=== PATIENT | female | born 1945 | race Caucasian/White ===

== ENCOUNTER 2023-07-25 07:29 | Observation (INO) ==
--- NOTE | 2023-07-06 15:30 | PAT Medication Instructions ---
Medication Instructions Date of Service July 06, 2023 Home Medications acetaminophen 325 mg tablet (Tylenol) 325 mg PO QID PRN chlorthalidone 25 mg tablet 25 mg PO QAM ibuprofen 200 mg tablet (Advil) 200 mg PO Q6H PRN lisinopril 20 mg tablet 20 mg PO BID rosuvastatin 10 mg tablet 10 mg PO HS ASK your surgeon for instructions ibuprofen 200 mg tablet (Advil) 200 mg PO Q6H PRN DO NOT take the morning of surgery chlorthalidone 25 mg tablet 25 mg PO QAM lisinopril 20 mg tablet 20 mg PO BID Take morning of surgery With a small sip of water, OTHERWISE NOTHING TO EAT OR DRINK AFTER MIDNIGHT: acetaminophen 325 mg tablet (Tylenol) 325 mg PO QID PRN(if needed) Take evening before surgery acetaminophen 325 mg tablet (Tylenol) 325 mg PO QID PRN(if needed) lisinopril 20 mg tablet 20 mg PO BID rosuvastatin 10 mg tablet 10 mg PO HS Other Notes If you have any questions please call us at [phone] or [phone] or [phone] or [phone]
--- NOTE | 2023-07-13 10:47 | Anesthesiology Consultation ---
Date of Service July 13, 2023 Assessment & Plan (1) Encounter for pre-operative examination: - PAT testing to be faxed to Dr. Grewal PCP, pending final clearance as below. - medical clearance 07/09/23: "...Stage IV MALT lymphoma, HTN...left total knee on 07/25/23...will be having her pretesting on 07/13/23...will ask that they all be forwarded to us. Barring any major abnormalities on her testing, she is appropriate for the procedure..." - Outpatient joint assessment: Patient is currently scheduled for inpatient pathway. If re-evaluated and patient/surgeon requests outpatient pathway, patient is not recommended candidate for outpatient joint program from anesthesia standpoint. Chart Review Chart Review: Pending: Refer to Additional Notes / Consult section and Patient seen in Pre Admission Testing Teaching & Discussion Pre-Anesthesia Teaching/Discussion Notes: Instructed NPO after midnight before surgery, except medications with 15 cc of water. Medication instructions provided according to the PAT guidelines. History Surgery Operation Date: 07/25/23 10:00 Proposed Procedures p Left Total Knee Arthroplasty - Nash Mai MD Height/Weight Height: 5 ft 1 in Weight: 81.1 kg Allergies Allergy/AdvReac Type Severity Reaction Status Date / Time No Known Allergies Allergy Verified 07/02/23 08:30 Medications Home Medications Medication Instructions Recorded Confirmed Last Taken acetaminophen 325 mg tablet 325 mg PO QID PRN Pain 07/02/23 07/02/23 Unknown (Tylenol) chlorthalidone 25 mg tablet 25 mg PO QAM 07/02/23 07/02/23 Unknown ibuprofen 200 mg tablet (Advil) 200 mg PO Q6H PRN Pain 07/02/23 07/02/23 Unknown lisinopril 20 mg tablet 20 mg PO BID 07/02/23 07/02/23 Unknown rosuvastatin 10 mg tablet 10 mg PO HS 07/02/23 07/02/23 Unknown allopurinol 100 mg tablet 100 mg PO QAM 07/13/23 07/13/23 Unknown Additional Notes: Pt states is also taking allopurinol 100 mg in the morning. This was written on provided medication instructions to take morning of surgery. She verbalized understanding and agreement, denied questions, concerns or additional medications. Past Medical History Medical History (Updated 07/13/23 @ 11:11 by Irasema Spivey PA-C) Acid reflux controlled, stable per pt CKD (chronic kidney disease) stage 2, GFR 60-89 ml/min History of cancer of stomach dx 2019 > was receiving treatment, completed History of parotid cancer 2019 > treatment completed Hyperlipidemia Hypertension controlled, stable per pt Lymphoma dx 2019 > has been cleared, no longer treatment Peripheral vascular disease Patient denies h/o stroke, seizures, heart attack, heart failure, DM, blood clots/DVTs or blood transfusions. Exercise / Class Metabolic Activity II 4-5 Yardwork/Stairs/Walk up hill (denies chest discomfort or shortness of breath with 1 FOS) Past Surgical History Surgical History History of bilateral tubal ligation History of cataract surgery bilat History of colonoscopy History of esophagogastroduodenoscopy (EGD) History of tooth extraction Past Anesthesia History No Hx of Anesthesia Complications and No Family Hx of Anesthesia Complications History of PONV No Hx of PONV and No Hx of Motion Sickness Social History Smoking Status: Never smoker Do You Dip or Chew Tobacco: No Hx Alcohol Use: No Hx Substance Use: No substance use type: does not use Review of Systems Patient denies chest pain, shortness of breath, dyspnea on exertion, snoring, witnessed apneas, fever, chills, cough, wheezing, or palpitations. Physical Exam Vital Signs Vitals BP 122/79 P 83 TEMP 98.1 SP02 99% on RA RESP 17 Physical Patient resting comfortably in chair in no acute distress, alert and oriented, responding appropriately throughout visit Full cervical extension range of motion without pain TMD 3.5 finger breadths Mallampati Score 2 Dentition: intact, denies chipped or loose teeth, caps/crowns, implants or bridges Lungs: normal respiratory effort. Good air movement, clear throughout to auscultation, no adventitious breath sounds Cardiac: regular rate and rhythm, no murmurs noted Carotid arteries: negative bruit bilat Lab Results Anesthesia Preop Results Results Anesthesia Widget: PT 10.3 Seconds (9.0-12.0) 07/13/23 PTT 25.6 Seconds (21.0-31.0) 07/13/23 INR 0.9 (0.9-1.1) 07/13/23 HA1c 5.7 % (4.5-5.6) H 07/13/23 Urine Color Yellow 07/13/23 Urine Appearance Cloudy (Clear) A 07/13/23 Urine pH 5.5 (4.5-7.5) 07/13/23 Urine Specific [place] 1.013 (1.000-1.030) 07/13/23 Urine Protein Negative (Negative) 07/13/23 Urine Glucose (UA) Negative (Negative) 07/13/23 Urine Ketones Negative (Negative) 07/13/23 Urine Blood Trace (Negative) H 07/13/23 Urine Nitrite Negative (Negative) 07/13/23 Urine Bilirubin Negative (Negative) 07/13/23 Urine Urobilinogen Negative (Negative) 07/13/23 Urine Leukocyte Esterase 1+ (Negative) H 07/13/23 Urine WBC (Auto) 5-10 /hpf (0-5) H 07/13/23 Urine RBC (Auto) 0-4 /hpf (0-4) 07/13/23 Urine Hyaline Casts (Auto) 1-5 /lpf (0-5) 07/13/23 Urine Epithelial Cells (Auto) >30 /lpf (0-5) H 07/13/23 Urine Bacteria (Auto) Negative (Negative) 07/13/23 Blood Type O Positive 07/13/23 Antibody Screen NEGATIVE 07/13/23 Testing Laboratory Results 06/28/2023 WBC: 4.9 H/H: 12 PLATELETS: 205 SODIUM: 140 POTASSIUM: 4.2 CHLORIDE: 104 CO2: 26 BUN: 22 CREATININE: 0.8 GLUCOSE: 102 Electrocardiogram Date: 07/13/23 NSR, rate 88 bpm Diffuse minor nonspecific ST abnormality Chest X-Ray Date: 07/13/23 No acute process
--- NOTE | 2023-07-23 19:24 | History & Physical Report ---
Date of Service July 23, 2023 Assessment & Plan (1) Primary osteoarthritis of left knee: Plan: Treatment options discussed with the patient. She has failed conservative measures and would like to proceed with surgical intervention. Risks, benefits and alternatives to surgery including but not limited to infection, DVT, pain, stiffness, need for revision surgery, damage to blood vessels, damage to nerves, PE, , were discussed with the patient and they wish to proceed. Plan on left total knee arthroplasty scheduled for 07/25/23 at [facility] with Dr. Mai. Plan on outpatient physical therapy. Plan on aspirin 81 mg twice daily for 1 mo post op for DVT prophylaxis. All questions answered. Patient will follow up post op. History of Present Illness Chief Complaint: Left knee pain Primary Care Provider: Holger Grewal MD 78yo female with PMHx significant for CKD, HTN, lymphoma, PVD who presents with ongoing left knee pain. Pain is interfering with her daily activity. She has failed conservative measures and would like to proceed with surgical intervention. Patient denies headaches, sweats, fevers, chills, double vision, blurred vision, cough, sore throat, dysphagia, chest pain, sob, wheezing, n/v/d/c, numbness, tingling, fatigue, urinary symptoms, mood disorders. ROS positive for left knee pain and stiffness. Allergies Allergy/AdvReac Type Severity Reaction Status Date / Time No Known Allergies Allergy Verified 07/02/23 08:30 Home Medications Medication Instructions Recorded Confirmed Type acetaminophen 325 mg tablet 325 mg PO QID PRN Pain 07/02/23 07/02/23 History (Tylenol) chlorthalidone 25 mg tablet 25 mg PO QAM 07/02/23 07/02/23 History ibuprofen 200 mg tablet (Advil) 200 mg PO Q6H PRN Pain 07/02/23 07/02/23 History lisinopril 20 mg tablet 20 mg PO BID 07/02/23 07/02/23 History rosuvastatin 10 mg tablet 10 mg PO HS 07/02/23 07/02/23 History allopurinol 100 mg tablet 100 mg PO QAM 07/13/23 07/13/23 History Past Med/Surg History Medical History (Updated 07/23/23 @ 19:22 by Kieran Crowder PA-C) Acid reflux controlled, stable per pt CKD (chronic kidney disease) stage 2, GFR 60-89 ml/min History of cancer of stomach dx 2019 > was receiving treatment, completed History of parotid cancer 2019 > treatment completed Hyperlipidemia Hypertension controlled, stable per pt Lymphoma dx 2019 > has been cleared, no longer treatment Peripheral vascular disease Surgical History History of bilateral tubal ligation History of cataract surgery bilat History of colonoscopy History of esophagogastroduodenoscopy (EGD) History of tooth extraction Social History Smoking Status: Never smoker Second Hand Exposure: No; Do You Dip or Chew Tobacco: No; Hx Alcohol Use: No Hx Substance Use: No Preferred Language: Grenadian Communication Ability: Effective Wall Covering Installer Required: No Beliefs That Will Affect Care: None Current Living Situation: Alone Feels Safe at Home: Yes Assistive Devices: Glasses Review of Systems All systems reviewed & are unremarkable except as noted in HPI & below Physical Exam Constitutional: well developed and well nourished; no acute distress Eyes: PERRL, conjunctivae normal, anicteric sclerae ENMT: external ear and nose normal, oropharynx normal Neck: trachea midline, no thyromegaly Respiratory: normal respiratory effort, lungs clear to auscultation Cardiovascular: RRR, no murmur, no edema Musculoskeletal: Left knee: Varus alignment. medial joint line tenderness. Mild swelling. Moderate crepitation. Positive Savage's. Negative valgus stress, negative varus. ROM -5-90 degrees. Skin: no rashes, warm and dry Neurologic: patellar DTR's 2+ bilat, sensation intact Psychiatric: A+Ox3, euthymic affect Results & Data Diagnostic Findings Left knee radiographs demonstrate tricompartmental arthritic changes. Bone on bone medial compartment with advanced patellofemoral compartment arthritis. There is periarticular osteophytes.
[~2023-07-25 07:29] MED LIST: ACETAMINOPHEN 500 MG TAB PO SCH; BUPIVACAINE 0.25% PF 30 ML VIAL ONE; BUPIVACAINE 0.5 % 5 MG/1 ML PF 10ML VIAL ONE; CeleBREX 200 MG CAP PO SCH; FAMOTIDINE 20 MG TAB PO SCH; GABAPENTIN 300 MG CAP PO SCH; LR 500ML BOLUS, THEN 15ML/HR IV SCH; LR 60ML/HR IV SCH; METOCLOPRAMIDE HCL 10 MG TABLET PO SCH; ROPIVACAINE 0.5% HCL/PF 150 MG, BUPIVACAINE 0.75% MPF 20 ML, EPINEPHrine 30MG/30ML (OR ... INSTIL SCH; TRANEXAMIC ACID 1,000 MG **IV Intra-op IV SCH; TRANEXAMIC ACID 1,000 MG **IV Pre-op IV SCH; ceFAZolin 2000MG 2,000 MG/15 ML SYR IV SCH; dexAMETHasone 4 MG TAB PO SCH
[2023-07-25] MEDS ORDERED: ATROPINE SULFATE 0.1 MG/ML 10ML SYR IV PRN (09:02)
[2023-07-25] MEDS ORDERED: ePHEDrine sulfate 50 MG/ML AMP IV PRN (09:02)
[2023-07-25] MEDS ORDERED: fentaNYL citrate PF 100 MCG/2 ML VIAL IV PRN (09:02)
[2023-07-25] MEDS ORDERED: ONDANSETRON INJ 2 MG/ML 2 ML VIAL IV PRN ×2 (09:02→15:13)
[2023-07-25] MEDS ORDERED: LIDOCAINE 2% 2 ML VIAL/AMP(20MG/ML) INFIL ONE (09:43)
[2023-07-25] MEDS ORDERED: PROPOFOL IV EMULSION 10 MG/ML 20 ML VIAL IV ONE (09:43)
[2023-07-25] MEDS ORDERED: MIDAZOLAM HCL 1 MG/ML 2ML VIAL ONE (09:43)
[2023-07-25] MEDS ORDERED: ORTHO JOINT ANESTHETIC ONE (10:55)
--- NOTE | 2023-07-25 10:57 | History & Physical Bridge Note ---
Date of Service July 25, 2023 History & Physical Bridge Note I have examined the patient, reviewed the History & Physical and in the interval since the performance of the History & Physical I have noted the following changes of clinical significance: no changes noted
[2023-07-25] MEDS ORDERED: KETAMINE 50 MG/5 ML SYRINGE ONE (12:52)
--- NOTE | 2023-07-25 13:59 | Post Operative Brief Note ---
Immediate Post Op Note v1 Date of Surgery July 25, 2023 Pre & Post Diagnosis Operation Date: 07/25/23 09:45 Pre-Op Diagnosis: Primary osteoarthritis of left knee Post-Op Diagnosis: Primary osteoarthritis of left knee I identified the patient and participated in the time-out.: Yes Procedure Operation Date: 07/25/23 09:45 Actual Procedures p Left Total Knee Arthroplasty(Left) , Luisa Acticoat superficial wound VAC- Nash Mai MD Surgeon Nash Mai MD Cryptographic Vulnerability Analyst Kieran READ Estimated Blood Loss 10 Findings Consistent with Post-Op Diagnosis Specimens bone cuts Drains Hemovac Drain (10 fr. dual trocar) Anesthesia Type MAC Spinal Regional Complications none Disposition Accompanied Patient To Recovery: No Disposition: Recovery Room Overlapping Procedure I was immediately available: during the entire case.
--- NOTE | 2023-07-25 14:13 | Operative Report ---
Post Operative Report Pre & Post Diagnosis Operation Date: 07/25/23 09:45 Pre-Op Diagnosis: Primary osteoarthritis of left knee Post-Op Diagnosis: Primary osteoarthritis of left knee I identified the patient and participated in the time-out.: Yes Procedure Operation Date: 07/25/23 09:45 Actual Procedures p Left Total Knee Arthroplasty(Left), application brisa and Acticoat superficial wound VAC - Nash Mai MD Surgeon Nash Mai MD Pipe Smoking Machine Operator Kieran READ Estimated Blood Loss 10 Findings Consistent with Post-Op Diagnosis Specimens bone cuts Drains 2 Hemovac Anesthesia Type MAC Spinal Regional Complications none Disposition Disposition: Recovery Room Indications 78-year-old female with severe tricompartmental osteoarthritis of left knee with limited range of motion. Patient also has obesity of the leg. Description of Procedure The patient was taken to the operating room and anesthetized under Spinal MAC regional block anesthesia. Patient was placed supine on the the operating table. A pneumatic tourniquet was placed about the Obese left upper thigh. The knee exam demonstrated an obese thigh and knee with range of motion 0 through 70 degrees only. Very stiff knee with no instability with varus valgus stress The involved leg was elevated exsanguinated with Esmarch bandage and the pneumatic tourniquet was raised to 350 millimeters mercury. A longitudinal incision was made across the anterior knee. Skin flaps were elevated. An incision was made into the medial retinaculum and extended up into the mid third of the quadriceps tendon and extended down to the tibial tubercle. Intra- articular findings demonstrated severe tricompartmental osteoarthritis with a very large loose body superior to the patella large patellar osteophytes [id number] both medial and lateral compartments with some bone loss medially with a varus knee and chronic ACL tear and notch stenosis with bone coursing across the notch. The knee was exposed by excising The posterior cruciate ligament and menisci. there were calcifications in the soft tissues with history of being on allopurinol and probable gout. The large loose body was resected. The infrapatellar fat pad was resected. The fat pad over the anterior femur at the upper aspect of the articular surface was resected for placement of the component in that area. A subperiosteal peel lateral release was performed around the patella. The Darling & Nephew journey 2.0 posterior stabilized total knee arthroplasty system was utilized for the procedure. The custom femoral cutting guide was pinned in position. The distal femoral cut was made. The size 4, 5 in 1 cutting block was placed. The anterior posterior and chamfer cuts were made. The knee was extended and a free hand cut technique was performed to the patella. The patella width was measured and the width was reproduced using a 32 symmetrical patella component. 3 drill holes are made for the patella component pegs. excess lateral facet was beveled off to prevent any impingement The tibia was then subluxed. The custom tibial cutting block was pinned in position and the proximal tibial cut was made with the oscillating saw. Flexion and extension gaps were balanced. this required a medial posterior medial release and minor pie crusting in the anterior MCL. The size 4 tibial trial was externally rotated in line with the tibial tubercle and pinned in position. The punch for the stem was used. The femoral trial was inserted and centered the notch cutting devices were used and the collet was placed. Tibial trials were used for the insert. The size 15 trial gave balanced ligaments through full range of motion. Patella tracking was assessed with range of motion. The patella tracked centrally. The trials were removed. The Orthomix anesthetic cocktail was injected per protocol. The cut bone surfaces and soft tissue were copiously irrigated with pulsatile lavage saline solution. The final components were cemented with Refobacin cement. The final components were Darling & Nephew journey 2.0 size 4 left femoral component, size 4 left tibial component, 15 posterior stabilized tibial polyethylene and a 32 mm symmetrical patella polyethylene After the cement cured ,the Betadine soak was used for 3 minutes. The knee was then copiously irrigated with pulsatile lavage saline solution. 2 drains were brought out laterally connected to Hemovac. The quadriceps tendon and medial retinaculum were closed with interrupted [id number] #1 Vicryl sutures. at the area of the patella tendon attachment the tendon started to pull away from the bone slightly so we reinforced the repair that area with a Darling & Nephew 2.8 mm Q fix suture anchor with ultra braid sutures. The knee was taken through range of motion and repair was secure. Knee range of motion was 0 through 90 degrees. the thick subcutaneous tissues were closed with 2-0 Vicryl sutures. The skin was closed with juan pablo. A Brisa and Acticoat superficial wound VAC was applied. The tourniquet was let down and the patient had good capillary refill to the extremity. The patient tolerated the procedure well. My physician legal support assistant Kieran READ participated as first assistant manager and was integral part in all aspects of the procedure including prepping, draping, leg positioning, soft tissue retraction, instrument management and assisted in the closure, wound VAC application and will participate in postoperative care the patient. I attest to the content of the Intraoperative Record and any orders documented therein. Any exceptions are noted below.
--- NOTE | 2023-07-25 14:50 | XRay Report ---
TWO VIEWS LEFT KNEE CLINICAL HISTORY: Postoperative examination. FINDINGS: AP and crosstable lateral portable views of the left knee are obtained. A left knee arthrop lasty is in near anatomic alignment. There has been undersurface remodeling of the patella. No acute fracture is seen. There are expected postoperative changes around the knee including skin clips, a rivas rgical drain, soft tissue edema, and subcutaneous gas. IMPRESSION: Expected postoperative changes status post left knee arthroplasty. No acute fracture is s een. ACT 112: Negative or not required by law. Electronically signed by: Broderick Frye M.D. 07/25/2023 2:49 PM
[2023-07-25] MEDS ORDERED: NALOXONE HCL 0.4 MG/1 ML VIAL/CARP IV PRN (15:13)
[2023-07-25] MEDS ORDERED: METOCLOPRAMIDE HCL INJ 5 MG/ML 2 ML VIAL IV PRN (15:13)
[2023-07-25] MEDS ORDERED: HYDROmorphone INJ 0.5 MG/0.5 ML SYR IV PRN (15:13)
[2023-07-25] MEDS ORDERED: bisacodyL 10 MG SUPP PR PRN (15:13)
[2023-07-25] MEDS ORDERED: MAGNESIUM HYDROXIDE SUSP 30 ML UDC PO PRN (15:13)
--- NOTE | 2023-07-25 15:27 | Anesthesiology Progress Note ---
Date of Service July 25, 2023 Anesthesia Post Procedure Vital Signs Vital Signs: Temp Pulse Pulse Resp BP Pulse Ox O2 Del Method 07/25/23 15:16 36.9 C 77 18 121/71 96 Room Air 07/25/23 15:00 81 13 111/68 98 Room Air 07/25/23 14:50 80 20 106/63 94 Room Air 07/25/23 14:40 76 18 102/61 96 Room Air 07/25/23 13:40 76 18 102/61 96 Room Air 07/25/23 14:30 36.7 C 76 20 103/62 97 Nasal Cannula 07/25/23 14:20 75 16 100/59 L 98 Nasal Cannula 07/25/23 14:10 79 18 99/74 L 98 Nasal Cannula 07/25/23 14:04 36.7 C 79 17 90/64 L 95 Nasal Cannula 07/25/23 08:03 36.7 C 85 20 145/91 H 99 Room Air O2 Flow Rate 07/25/23 15:16 07/25/23 15:00 07/25/23 14:50 07/25/23 14:40 07/25/23 13:40 07/25/23 14:30 2 07/25/23 14:20 2 07/25/23 14:10 2 07/25/23 14:04 2 07/25/23 08:03 Pain Intensity Bilateral Knee: Pain Intensity: 5 Transfer of Care Handoff Completed per policy Notes Mental Status: alert / awake / arousable and participated in evaluation Patient Amnestic to Procedure: Yes Nausea / Vomiting: adequately controlled Pain: adequately controlled Airway Patency, RR, SpO2: stable & adequate BP & HR: stable & adequate Hydration State: stable & adequate Neuraxial Anesthesia: was administered and sensory block is resolving Anesthetic Complications: no major complications apparent and Pt Satisfied with anesthetic care
[2023-07-25] MEDS: SODIUM CHLORIDE 0.9% 1,000 ML IV SCH (15:49)
[2023-07-25] MEDS: ASPIRIN 81 MG ECTAB PO SCH (20:09)
[2023-07-25] MEDS: DOCUSATE SODIUM 100 MG CAP PO SCH (20:09)
[2023-07-25] MEDS: SENNA 8.6 MG TAB PO SCH (20:10)
[2023-07-25] MEDS: ROSUVASTATIN CALCIUM 10 MG TAB PO SCH (20:10)
[2023-07-25] MEDS: CeleBREX 200 MG CAP PO SCH (20:10)
[2023-07-25] MEDS: ceFAZolin 2000MG 2,000 MG/15 ML SYR IV SCH (20:16)
[2023-07-25] MEDS: ACETAMINOPHEN 500 MG TAB PO SCH (22:01)
[2023-07-26] MEDS ORDERED: Nursing to Pharmacy Communication SCH (02:30)
[2023-07-26] MEDS: SODIUM CHLORIDE 0.9% 1,000 ML IV SCH (03:03)
[2023-07-26] MEDS: ceFAZolin 2000MG 2,000 MG/15 ML SYR IV SCH (04:50)
[2023-07-26] MEDS: ACETAMINOPHEN 500 MG TAB PO SCH ×3 (06:02→22:01)
[2023-07-26 06:36] LABS: Hematocrit (blood only) 30.9 % (37.0-47.0); Hemoglobin 10.3 g/dl (12.0-16.0); Mean Corpuscular Hemoglobin 28.9 pg (25.0-34.0); Mean Corpuscular Hgb Conc 33.3 g/dL (32.0-36.0); Mean Corpuscular Volume 86.6 fL (80.0-100.0); Mean Platelet Volume 10.2 fL (9.4-12.4); Platelet Count 190 K/uL (130-400); RDW Coefficient of Variation 13.9 % (11.5-14.5); Red Blood Count 3.57 M/uL (4.20-5.40)
[2023-07-26 06:50] LABS: BUN Creatinine Ratio 24.4 (10-20); Creatinine Clr Calc Pharmacy 59.6 ml/min; Est GFR (African American) 85.6 ml/min; Est GFR (Non-African American) 73.8 ml/min; Potassium 3.8 mmol/L (3.5-5.1)
--- NOTE | 2023-07-26 07:44 | Orthopedic Progress Note ---
Date of Service July 26, 2023 Assessment & Plan (1) Primary osteoarthritis of left knee: Plan: Postop day #1 left total knee arthroplasty -PT/OT -Pain management as written -AM labs: Leukocytosis likely reactive due to surgical stress versus perioperative steroids. Hemoglobin 10.6 acute blood loss anemia due to surgical dilution. Patient is asymptomatic. Hemovac output 250 cc last shift -DVT prophylaxis: SCDs, teds, aspirin 81 mg -Discharge planning: Plan on discharge home when stable. High Hemovac past shift. We will monitor throughout the day and plan on discharge likely tomorrow. Admission and Anticipated Discharge Date Admission Date: July 25, 2023 Subjective Patient is postop day 1 left total knee. She is doing well this morning. Block is still in effect, minimal pain. Some tingling into her foot. Otherwise no other complaints. Denies chest pain, shortness of breath, nausea/vomiting/diarrhea, headaches or dizziness. Review of Systems Review of Systems: All systems reviewed & are unremarkable except as noted in Subjective Physical Exam Physical Exam: Left knee: Dressing is clean, dry, intact. No calf tenderness. Able to do a straight leg raise. Toes are mobile with good dorsiflexion. Distally neurovascular status and sensation is grossly intact. Some tingling in her foot likely residual from nerve block. Constitutional: WD/WN, vitals as above Results & Data Vital Signs (Past 12 Hours) Vital Signs Temp Pulse Resp BP Pulse Ox O2 Del Method 07/26/23 02:57 36.5 C 76 16 118/73 96 Room Air 07/25/23 20:00 Room Air 07/25/23 22:47 36.7 C 76 16 104/67 96 Room Air Laboratory Results Lab Results 07/26/23 07/26/23 Range/Units 05:41 05:41 WBC 12.80 H (4.8-10.8) K/ul RBC 3.57 L (4.20-5.40) M/uL Hgb 10.3 L (12.0-16.0) g/dl Hct 30.9 L (37.0-47.0) % MCV 86.6 (80.0-100.0) fL MCH 28.9 (25.0-34.0) pg MCHC 33.3 (32.0-36.0) g/dL RDW Std Deviation 44.0 (36.4-46.3) fL RDW Coeff of [place] 13.9 (11.5-14.5) % Plt Count 190 (130-400) K/uL MPV 10.2 (9.4-12.4) fL Sodium 139 (136-145) mmol/L Potassium 3.8 (3.5-5.1) mmol/L Chloride 107 (98-107) mmol/L Carbon Dioxide 25 (21-32) mmol/L Anion Gap 7 (3-11) BUN 19 (6-23) mg/dl Creatinine 0.78 (0.6-1.2) mg/dl Est Cr Clr Drug Dosing 59.6 ml/min Est GFR ( Amer) 85.6 ml/min Est GFR (Non-Af Amer) 73.8 ml/min BUN/Creatinine Ratio 24.4 H (10-20) Glucose 133 H (70-99(Fasting)) mg/dl Calcium 8.0 L (8.6-10.3) mg/dl
--- NOTE | 2023-07-26 07:59 | Hospitalist Consultation ---
Date of Consultation July 26, 2023 Assessment & Plan (1) Primary osteoarthritis of left knee: POD# 1 s/p Left Total Knee Arthroplasty(Left), application brisa and Acticoat superficial wound VAC - Nash Mai MD. EBL 10cc Pain control/bowel regimen/PT/OT per primary service DVT proph: ASA 81mg BID WBC elevation, likely from steroids. Afebrile. Hgb 10.6, acute blood loss from surgery suspected as well as aspect of dilutional from IVF (no pre-op hgb for comparison however) Hemovac output 340cc overnight, additional 175cc already this morning and likely would benefit from continuing monitoring to ensure slowed before discharge. She is asymptomatic at this time without SOB/CP/lightheaded/dizziness but will monitor for any issues. (2) Hypertension: BP stable, renal function stable on AM labs Resumed future hold for her chlorthalidone/lisinopril, BP 124/78 this morning (3) Hyperlipidemia: continue statin HS (4) CKD (chronic kidney disease) stage 2, GFR 60-89 ml/min: renal function at baseline Cautious use of NSAIDs as needed for pain control (5) Lymphoma: hx MALT lymphoma, in remission Plan Thank you for allowing hospitalist service to participate in the care of Ms Easley. Monitor hemovac output/increased but likely would benefit monitoring overnight. Please call with any questions/concerns. Supervising Physician Co-Signing Physician Notes During face to face encounter, I obtained a history and physical examination, and answered any questions the patient had. I discussed the plan of care with CHACE Marie and irene. I reviewed above note and agree with it except for the following: Patient is consulted under medical service for medical management. Monitoring hemoglobin after L TKA. Resume home meds such as her thiazide and lisinopril. History of Present Illness Reason for Consultation: medical management Requesting Physician: Dr Mello Attending Physician: Nash Mai MD History of Present Illness 78yo female with PMHx significant for HTN, HLD, MALT lymphoma presented for LEFT TKA with Dr Mai on 07/25. EBL 10cc Patient evaluated in 306, getting ready to work with OT. Pain controlled, still having a little numbness but reports getting better than yesterday, some tingling to her toes. Hemovac emptied for >175cc in less than 2 hour period of time per patient, she is anticipating staying overnight. Eating/drinking without issue. No chest pain, shortness of breath, lightheadedness or dizziness reported. She notes everyone keeps asking her this. Discussed if she has any of these symptoms to notify nursing for repeat eval. She plans to continue outpatient therapy at discharge. Allergies Allergy/AdvReac Type Severity Reaction Status Date / Time No Known Allergies Allergy Verified 07/25/23 07:52 Home Medications Medication Instructions Recorded Confirmed Type chlorthalidone 25 mg tablet 25 mg PO QAM 07/02/23 07/25/23 History lisinopril 20 mg tablet 20 mg PO BID 07/02/23 07/25/23 History rosuvastatin 10 mg tablet (Crestor) 10 mg PO HS 07/02/23 07/25/23 History allopurinol 100 mg tablet 100 mg PO QAM 07/13/23 07/25/23 History acetaminophen 500 mg tablet 1,000 mg PO Q8 #60 tabs 07/27/23 Rx (Tylenol Extra Strength) aspirin 81 mg tablet,delayed 81 mg PO BID #60 tabs 07/27/23 Rx release celecoxib 200 mg capsule (Celebrex) 200 mg PO BID #60 caps 07/27/23 Rx ferrous sulfate 325 mg (65 mg 325 mg PO QAM #30 tabs 07/28/23 Rx iron) tablet,delayed release oxycodone 5 mg tablet 5 mg PO Q4H PRN pain #30 tabs 07/28/23 Rx polyethylene glycol 3350 17 gram 17 g PO DAILY PRN constipation #5 07/28/23 Rx oral powder packet (Miralax) ea Patient History Medical History Acid reflux controlled, stable per pt CKD (chronic kidney disease) stage 2, GFR 60-89 ml/min History of cancer of stomach dx 2019 > was receiving treatment, completed History of parotid cancer 2019 > treatment completed Hyperlipidemia Hypertension controlled, stable per pt Lymphoma dx 2019 > has been cleared, no longer treatment Peripheral vascular disease Surgical History History of bilateral tubal ligation History of cataract surgery bilat History of colonoscopy History of esophagogastroduodenoscopy (EGD) History of tooth extraction Social History Smoking Status: Never smoker Second Hand Exposure: No; Do You Dip or Chew Tobacco: No; Tobacco Cessation Education Requested by Patient: No Hx Alcohol Use: No Hx Substance Use: No Preferred Language: Serbian Communication Ability: Effective Knuckle Strap Sewer Required: No Beliefs That Will Affect Care: None Current Living Situation: Alone Other Information That Helps Us Care for You: No Feels Safe at Home: Yes Safety Concerns: Feels Safe At This Time Assistive Devices: Walker Review of Systems Review of Systems: All systems reviewed & are unremarkable except as noted in HPI & below Physical Exam Physical Exam: General: WN/WD female sitting up in bed, about to work with therapy, no acute distress HEENT: head normocephalic, atraumatic, mmm, trachea midline Resp: CTA, no w/c/r, on room air CV: RRR, no significant mrg, trace pedal edema, calves nontender, pulses palpable GI: +BS, soft/NT no obrien MSK/Neuro: dressing to LEFT knee c/d/i, TRINIDAD wrap/ice pack in place, hemovac with bloody drainage, slight decreased sensation to light touch but intact to pressure. toes mobile, cap refill wnl Psych: AOx3, cooperative Results & Data Results & Data Vital Signs (Past 12 Hours) Vital Signs Temp Pulse Resp BP Pulse Ox O2 Del Method 07/26/23 07:41 36.5 C 81 16 124/78 99 Room Air 07/26/23 02:57 36.5 C 76 16 118/73 96 Room Air 07/25/23 20:00 Room Air 07/25/23 22:47 36.7 C 76 16 104/67 96 Room Air Laboratory Results 07/26/23 07/26/23 Range/Units 05:41 05:41 WBC 12.80 H (4.8-10.8) K/ul RBC 3.57 L (4.20-5.40) M/uL Hgb 10.3 L (12.0-16.0) g/dl Hct 30.9 L (37.0-47.0) % MCV 86.6 (80.0-100.0) fL MCH 28.9 (25.0-34.0) pg MCHC 33.3 (32.0-36.0) g/dL RDW Std Deviation 44.0 (36.4-46.3) fL RDW Coeff of [place]ico 13.9 (11.5-14.5) % Plt Count 190 (130-400) K/uL MPV 10.2 (9.4-12.4) fL Sodium 139 (136-145) mmol/L Potassium 3.8 (3.5-5.1) mmol/L Chloride 107 (98-107) mmol/L Carbon Dioxide 25 (21-32) mmol/L Anion Gap 7 (3-11) BUN 19 (6-23) mg/dl Creatinine 0.78 (0.6-1.2) mg/dl Est Cr Clr Drug Dosing 59.6 ml/min Est GFR ( Amer) 85.6 ml/min Est GFR (Non-Af Amer) 73.8 ml/min BUN/Creatinine Ratio 24.4 H (10-20) Glucose 133 H (70-99(Fasting)) mg/dl Calcium 8.0 L (8.6-10.3) mg/dl Diagnostic Findings Knee X-Ray 07/25/23 14:04 TWO VIEWS LEFT KNEE CLINICAL HISTORY: Postoperative examination. FINDINGS: AP and crosstable lateral portable views of the left knee are obtained. A left knee arthroplasty is in near anatomic alignment. There has been undersurface remodeling of the patella. No acute fracture is seen. There are expected postoperative changes around the knee including skin clips, a surgical drain, soft tissue edema, and subcutaneous gas. IMPRESSION: Expected postoperative changes status post left knee arthroplasty. No acute fracture is seen. ACT 112: Negative or not required by law. Electronically signed by: Broderick Frye M.D. 07/25/2023 2:49 PM PG Care Time/CCT Total # of Minutes Spent Total Time Spent with Patient: Total time spent is greater than 50% in coordination of care (as documented) at patient's floor/unit and/or counseling patient: Coding Level of Care Code 01377 IN/OBS CONSULT LVL 3,45M Diagnoses Primary osteoarthritis of left knee M17.12 Hypertension I10 Hyperlipidemia E78.5 CKD (chronic kidney disease) stage 2, GFR 60-89 ml/min N18.2 Lymphoma C85.90
[2023-07-26] MEDS: CeleBREX 200 MG CAP PO SCH ×2 (08:41→20:32)
[2023-07-26] MEDS: DOCUSATE SODIUM 100 MG CAP PO SCH ×2 (08:41→20:33)
[2023-07-26] MEDS: lisinopril 20 MG TAB PO SCH ×2 (08:41→20:34)
[2023-07-26] MEDS: MULTIVITAMIN TAB PO SCH (08:42)
[2023-07-26] MEDS: ASPIRIN 81 MG ECTAB PO SCH ×2 (08:42→20:33)
[2023-07-26] MEDS: allopurinoL 100 MG TAB PO SCH (08:42)
[2023-07-26] MEDS ORDERED: CHLORTHALIDONE 25 MG TAB PO SCH (09:00)
[2023-07-26] MEDS: ROSUVASTATIN CALCIUM 10 MG TAB PO SCH (20:33)
[2023-07-26] MEDS: SENNA 8.6 MG TAB PO SCH (20:34)
[2023-07-27 06:16] LABS: Hematocrit (blood only) 26.7 % (37.0-47.0); Hemoglobin 8.8 g/dl (12.0-16.0); Mean Corpuscular Hemoglobin 29.2 pg (25.0-34.0); Mean Corpuscular Volume 88.7 fL (80.0-100.0); Mean Platelet Volume 9.8 fL (9.4-12.4); Platelet Count 164 K/uL (130-400); RDW Coefficient of Variation 14.3 % (11.5-14.5); RDW Standard Deviation 45.7 fL (36.4-46.3); Red Blood Count 3.01 M/uL (4.20-5.40); White Blood Count 6.53 K/ul (4.8-10.8)
[2023-07-27] MEDS: ACETAMINOPHEN 500 MG TAB PO SCH ×3 (06:21→21:54)
[2023-07-27] MEDS: oxyCODONE HCL IR 5 MG TAB (IMMEDIATE RELEASE) PO PRN (06:26)
[2023-07-27 06:33] LABS: BUN Creatinine Ratio 29.9 (10-20); Calcium 7.7 mg/dl (8.6-10.3); Creatinine Clr Calc Pharmacy 69.4 ml/min; Est GFR (Non-African American) 85.4 ml/min
--- NOTE | 2023-07-27 07:35 | Orthopedic Progress Note ---
Date of Service July 27, 2023 Assessment & Plan (1) Primary osteoarthritis of left knee: Plan: Postop day #2 left total knee arthroplasty -PT/OT -Pain management as written -AM labs: Leukocytosis likely reactive due to surgical stress versus perioperative steroids. Hemoglobin down to 8.8 from 10.6 acute blood loss anemia due to surgical dilution. Patient is asymptomatic. -DVT prophylaxis: SCDs, teds, aspirin 81 mg -Discharge planning: Plan on discharge home when stable. Patient is having increased pain today and is having trouble getting under control. We will add a dose of Toradol. She did have 10 mg of oxycodone this morning and is having some lightheadedness due to this. She states that she has had this reaction before and will improve. Discussed switching pain medication however she would like to keep it where it is right now. We will monitor her throughout the day today and likely discharge home tomorrow if pain better controlled. Admission and Anticipated Discharge Date Admission Date: July 25, 2023 Subjective Postop day 2 left total knee. Patient is having increased pain today as the nerve blocks were off. She is having trouble getting her pain under control. She is concerned about going home today as she is unsure of her self. Review of Systems Review of Systems: All systems reviewed & are unremarkable except as noted in Subjective Physical Exam Physical Exam: Left knee: Dressing is clean, dry, intact. No calf tenderness. Toes are mobile with good dorsiflexion. Distally neurovascular status and sensation is grossly intact. Results & Data Vital Signs (Past 12 Hours) Vital Signs Temp Pulse Resp BP Pulse Ox O2 Del Method 07/27/23 06:46 36.6 C 78 18 104/64 100 Room Air 07/26/23 20:30 Room Air 07/26/23 20:13 37 C 88 18 98/59 L 98 Room Air Laboratory Results Lab Results 07/26/23 07/26/23 07/27/23 Range/Units 05:41 05:41 05:51 WBC 12.80 H 6.53 (4.8-10.8) K/ul RBC 3.57 L 3.01 L (4.20-5.40) M/uL Hgb 10.3 L 8.8 L (12.0-16.0) g/dl Hct 30.9 L 26.7 L (37.0-47.0) % MCV 86.6 88.7 (80.0-100.0) fL MCH 28.9 29.2 (25.0-34.0) pg MCHC 33.3 33.0 (32.0-36.0) g/dL RDW Std Deviation 44.0 45.7 (36.4-46.3) fL RDW Coeff of [place] 13.9 14.3 (11.5-14.5) % Plt Count 190 164 (130-400) K/uL MPV 10.2 9.8 (9.4-12.4) fL Sodium 139 (136-145) mmol/L Potassium 3.8 (3.5-5.1) mmol/L Chloride 107 (98-107) mmol/L Carbon Dioxide 25 (21-32) mmol/L Anion Gap 7 (3-11) BUN 19 (6-23) mg/dl Creatinine 0.78 (0.6-1.2) mg/dl Est Cr Clr Drug Dosing 59.6 ml/min Est GFR ( Amer) 85.6 ml/min Est GFR (Non-Af Amer) 73.8 ml/min BUN/Creatinine Ratio 24.4 H (10-20) Glucose 133 H (70-99(Fasting)) mg/dl Calcium 8.0 L (8.6-10.3) mg/dl 07/27/23 Range/Units 05:51 WBC (4.8-10.8) K/ul RBC (4.20-5.40) M/uL Hgb (12.0-16.0) g/dl Hct (37.0-47.0) % MCV (80.0-100.0) fL MCH (25.0-34.0) pg MCHC (32.0-36.0) g/dL RDW Std Deviation (36.4-46.3) fL RDW Coeff of [place] (11.5-14.5) % Plt Count (130-400) K/uL MPV (9.4-12.4) fL Sodium 140 (136-145) mmol/L Potassium 4.0 (3.5-5.1) mmol/L Chloride 109 H (98-107) mmol/L Carbon Dioxide 26 (21-32) mmol/L Anion Gap 5 (3-11) BUN 20 (6-23) mg/dl Creatinine 0.67 (0.6-1.2) mg/dl Est Cr Clr Drug Dosing 69.4 ml/min Est GFR ( Amer) 99.0 ml/min Est GFR (Non-Af Amer) 85.4 ml/min BUN/Creatinine Ratio 29.9 H (10-20) Glucose 100 H (70-99(Fasting)) mg/dl Calcium 7.7 L (8.6-10.3) mg/dl
[2023-07-27] MEDS ORDERED: KETOROLAC TROMETHAMINE 15 MG/ML VIAL IV ONE (07:37)
--- NOTE | 2023-07-27 07:58 | Hospitalist Progress Note ---
Date of Service July 27, 2023 Assessment & Plan (1) Primary osteoarthritis of left knee: Plan: POD# 2 s/p Left Total Knee Arthroplasty(Left), application brisa and Acticoat superficial wound VAC - Nash Mai MD. EBL 10cc Pain control/bowel regimen/PT/OT per primary service DVT proph: ASA 81mg BID WBC elevation, likely from steroids. Afebrile. Normalized on repeat Hgb 10.6 post op--> 8.8, acute blood loss from surgery with EBL 10cc as well as significant hemovac output (340 +650cc thus far), some dilutional aspect from surgery as well. Do not have pre-op hgb level for comparison -Asymptomatic yesterday, reporting some lightheadedness to primary this morning following pain medication -Would hold lisinopril/chlorthalidone this morning given borderline BPs 104/64 this morning -Will check orthostatic vitals, iron panel. Iron panel w/ low iron/trans % day--> start PO iron once daily, would rec to continue bowel regimen. Consider BID if tolerates Celebrex placed on hold, given dose of toradol. Cautious use NSAIDs w/ bleeding Would continue to monitor output CBC in AM (2) Hypertension: Plan: BP stable, renal function stable on AM labs post-op and today however BP soft/hgb drop and will place her chlorthalidone/lisinopril on hold for this morning and check orthostatics (3) Hyperlipidemia: Plan: continue statin HS (4) CKD (chronic kidney disease) stage 2, GFR 60-89 ml/min: Plan: renal function at baseline Cautious use of NSAIDs as needed for pain control (5) Lymphoma: Plan: hx MALT lymphoma, in remission Plan Thank you for allowing hospitalist service to participate in the care of Ms Easley. Monitor hemovac output but likely would benefit monitoring overnight. Starting iron supplementation Please call with any questions/concerns. Admission and Anticipated Discharge Date Admission Date: July 25, 2023 Subjective eval this morning, some lightheadedness after pain medication for about 30min to an hour then resolves. states this is not abnormal. Had good BM yesterday, discussed hgb level. No SOB/CP reported, but will plan to start oral iron. Discussed color change to stool/constipation and would continue bowel regimen. Planning to monitor overnight with hemoglobin levels, discharge planned for tomorrow. Physical Exam Physical Exam: General: WN/WD female sitting up in bed, NAD HEENT: head normocephalic, atraumatic, mmm, trachea midline Resp: CTA, no w/c/r, on room air CV: RRR, no significant mrg, trace pedal edema, calves nontender, pulses palpable GI: +BS, soft/NT no obrien MSK/Neuro: dressing to LEFT knee c/d/i, TRINIDAD wrap/ice pack in place, hemovac with bloody drainage, NVI, cap refill wnl, toes mobile, strength equal b/l LE Psych: AOx3, cooperative Results & Data Results & Data Vital Signs (Past 12 Hours) Vital Signs Temp Pulse Resp BP Pulse Ox O2 Del Method 07/27/23 06:46 36.6 C 78 18 104/64 100 Room Air 07/26/23 20:30 Room Air 07/26/23 20:13 37 C 88 18 98/59 L 98 Room Air Laboratory Results 07/27/23 07/27/23 Range/Units 05:51 05:51 WBC 6.53 (4.8-10.8) K/ul RBC 3.01 L (4.20-5.40) M/uL Hgb 8.8 L (12.0-16.0) g/dl Hct 26.7 L (37.0-47.0) % MCV 88.7 (80.0-100.0) fL MCH 29.2 (25.0-34.0) pg MCHC 33.0 (32.0-36.0) g/dL RDW Std Deviation 45.7 (36.4-46.3) fL RDW Coeff of [place] 14.3 (11.5-14.5) % Plt Count 164 (130-400) K/uL MPV 9.8 (9.4-12.4) fL Sodium 140 (136-145) mmol/L Potassium 4.0 (3.5-5.1) mmol/L Chloride 109 H (98-107) mmol/L Carbon Dioxide 26 (21-32) mmol/L Anion Gap 5 (3-11) BUN 20 (6-23) mg/dl Creatinine 0.67 (0.6-1.2) mg/dl Est Cr Clr Drug Dosing 69.4 ml/min Est GFR ( Amer) 99.0 ml/min Est GFR (Non-Af Amer) 85.4 ml/min BUN/Creatinine Ratio 29.9 H (10-20) Glucose 100 H (70-99(Fasting)) mg/dl Calcium 7.7 L (8.6-10.3) mg/dl PG Care Time/CCT Total # of Minutes Spent Total Time Spent with Patient: Total time spent is greater than 50% in coordination of care (as documented) at patient's floor/unit and/or counseling patient: Coding Level of Care Code 69427 SUB INP/OBS CARE 3/50MIN Diagnoses Primary osteoarthritis of left knee M17.12 Hypertension I10 Hyperlipidemia E78.5 CKD (chronic kidney disease) stage 2, GFR 60-89 ml/min N18.2 Lymphoma C85.90
[2023-07-27 09:15] LABS: Ferritin 83.2 ng/ml (8-388)
[2023-07-27] MEDS: DOCUSATE SODIUM 100 MG CAP PO SCH ×2 (09:42→20:17)
[2023-07-27] MEDS: MULTIVITAMIN TAB PO SCH (09:42)
[2023-07-27] MEDS: allopurinoL 100 MG TAB PO SCH (09:43)
[2023-07-27] MEDS: ASPIRIN 81 MG ECTAB PO SCH ×2 (09:43→20:16)
[2023-07-27] MEDS: FERROUS SULFATE 325 MG TAB PO SCH (14:52)
[2023-07-27] MEDS: FAMOTIDINE 20 MG TAB PO SCH (18:33)
[2023-07-27] MEDS: SENNA 8.6 MG TAB PO SCH (20:16)
[2023-07-27] MEDS: ROSUVASTATIN CALCIUM 10 MG TAB PO SCH (20:17)
[2023-07-27] MEDS: CeleBREX 200 MG CAP PO SCH (20:17)
[2023-07-28] MEDS: oxyCODONE HCL IR 5 MG TAB (IMMEDIATE RELEASE) PO PRN ×2 (01:58→12:53)
[2023-07-28] MEDS: ACETAMINOPHEN 500 MG TAB PO SCH (05:11)
[2023-07-28 06:55] LABS: Hematocrit (blood only) 25.3 % (37.0-47.0); Hemoglobin 8.3 g/dl (12.0-16.0); Mean Corpuscular Hemoglobin 29.5 pg (25.0-34.0); Mean Corpuscular Hgb Conc 32.8 g/dL (32.0-36.0); Mean Platelet Volume 10.3 fL (9.4-12.4); Platelet Count 161 K/uL (130-400); RDW Coefficient of Variation 14.5 % (11.5-14.5); RDW Standard Deviation 47.2 fL (36.4-46.3); Red Blood Count 2.81 M/uL (4.20-5.40); White Blood Count 5.57 K/ul (4.8-10.8)
[2023-07-28 06:59] LABS: BUN Creatinine Ratio 27.7 (10-20); Calcium 7.6 mg/dl (8.6-10.3); Creatinine Clr Calc Pharmacy 71.5 ml/min; Est GFR (Non-African American) 86.2 ml/min; Potassium 3.8 mmol/L (3.5-5.1)
[2023-07-28] MEDS: ASPIRIN 81 MG ECTAB PO SCH (07:55)
[2023-07-28] MEDS: MULTIVITAMIN TAB PO SCH (07:55)
[2023-07-28] MEDS: FERROUS SULFATE 325 MG TAB PO SCH (07:55)
[2023-07-28] MEDS: CeleBREX 200 MG CAP PO SCH (07:55)
[2023-07-28] MEDS: allopurinoL 100 MG TAB PO SCH (07:55)
[2023-07-28] MEDS: DOCUSATE SODIUM 100 MG CAP PO SCH (07:56)
[2023-07-28] MEDS: FAMOTIDINE 20 MG TAB PO SCH (07:58)
--- NOTE | 2023-07-28 08:06 | Hospitalist Progress Note ---
Date of Service July 28, 2023 Assessment & Plan (1) Primary osteoarthritis of left knee: Plan: POD# 3 s/p Left Total Knee Arthroplasty(Left), application brisa and Acticoat superficial wound VAC - Nash Mai MD. EBL 10cc Pain control/bowel regimen/PT/OT per primary service DVT proph: ASA 81mg BID WBC elevation, likely from steroids. Afebrile. Normalized on repeat Hgb 10.6 post op--> 8.8 --> 8.3, suspect acute blood loss anemia from surgery/hemovac output (cumulative 1.15L), some dilutional aspect from surgery Orthostatic vitals acceptable today Started PO iron, continued daily at d/c. Encouraged to eat red meat/vitamin C, continue bowel regimen while on oral Fe/pain medications. To alert her PCP if any CP/SOB/dizziness/lightheadedness -- none reported today Dispo per primary service -- planning for discharge today Instructed to have patient hold BP meds today/monitor BP at home and if stable tomorrow can resume/follow up with PCP (2) Hypertension: Plan: BP stable but borderline, given blood loss, held antiHTN medications and BPs stable 116/71 Orthostatics acceptable Discussed as above, holding for today, monitoring BP and if stable given hgb drop decreased and asymptomatic from such (no wheezing/edema on exam), can resume these medications tomorrow (3) Hyperlipidemia: Plan: continue statin HS (4) CKD (chronic kidney disease) stage 2, GFR 60-89 ml/min: Plan: renal function at baseline Cautious use of NSAIDs as needed for pain control (5) Lymphoma: Plan: hx MALT lymphoma, in remission Plan Thank you for allowing hospitalist service to participate in the care of Ms Easley. Continue PO iron at dc, hold antiHTN for today/monitor BP at home and if improved tomorrow given hgb level stabilizing, can resume tomorrow Primary service planning on discharging her today. Hospitalist service will sign off. Please call with any questions/concerns. Admission and Anticipated Discharge Date Admission Date: July 25, 2023 Subjective Patient evaluated this morning. Doing well. No lightheaded/dizziness. Orthostatics not positive. Discussed w/ ortho and planning to send on oral iron supplementation at discharge. To increase her red meat consumption. Patient stable for discharge. Physical Exam Physical Exam: General: WN/WD female sitting up in chair, NAD, anxious for discharge HEENT: head normocephalic, atraumatic, mmm, trachea midline Resp: CTA, no w/c/r, on room air CV: RRR, no significant mrg, trace pedal edema, calves nontender, pulses palpable GI: +BS, soft/NT no obrien MSK/Neuro: dressing to LEFT knee c/d/i, hemovac scant drainage, NVI, toes mobile/compartments soft, strength equal bilaterally Psych: AOx3, cooperative Results & Data Results & Data Vital Signs (Past 12 Hours) Vital Signs Temp Pulse Resp BP Pulse Ox O2 Del Method 07/28/23 07:35 36.7 C 87 16 116/71 98 Room Air 07/27/23 20:14 36.8 C 88 16 107/67 96 Room Air Laboratory Results 07/28/23 07/28/23 07/27/23 Range/Units 05:35 05:35 05:51 WBC 5.57 (4.8-10.8) K/ul RBC 2.81 L (4.20-5.40) M/uL Hgb 8.3 L (12.0-16.0) g/dl Hct 25.3 L (37.0-47.0) % MCV 90.0 (80.0-100.0) fL MCH 29.5 (25.0-34.0) pg MCHC 32.8 (32.0-36.0) g/dL RDW Std Deviation 47.2 H (36.4-46.3) fL RDW Coeff of [place] 14.5 (11.5-14.5) % Plt Count 161 (130-400) K/uL MPV 10.3 (9.4-12.4) fL Sodium 137 (136-145) mmol/L Potassium 3.8 (3.5-5.1) mmol/L Chloride 106 (98-107) mmol/L Carbon Dioxide 27 (21-32) mmol/L Anion Gap 4 (3-11) BUN 18 (6-23) mg/dl Creatinine 0.65 (0.6-1.2) mg/dl Est Cr Clr Drug Dosing 71.5 ml/min Est GFR ( Amer) 100.0 ml/min Est GFR (Non-Af Amer) 86.2 ml/min BUN/Creatinine Ratio 27.7 H (10-20) Glucose 100 H (70-99(Fasting)) mg/dl Calcium 7.6 L (8.6-10.3) mg/dl Iron 22 L (35-150) mcg/dl TIBC 279 (250-450) mcg/dl Unsaturated IBC 257 (155-355) mcg/dl Transferrin % Sat 8 L (15-50) % Ferritin 83.2 (8-388) ng/ml PG Care Time/CCT Total # of Minutes Spent Total Time Spent with Patient: Total time spent is greater than 50% in coordination of care (as documented) at patient's floor/unit and/or counseling patient: Coding Level of Care Code 81941 SUB INP/OBS CARE 235MIN Diagnoses Primary osteoarthritis of left knee M17.12 Hypertension I10 Hyperlipidemia E78.5 CKD (chronic kidney disease) stage 2, GFR 60-89 ml/min N18.2 Lymphoma C85.90
--- NOTE | 2023-07-28 09:15 | Orthopedic Progress Note ---
Date of Service July 28, 2023 Assessment & Plan (1) Primary osteoarthritis of left knee: Plan: Postop day #3 left total knee arthroplasty -PT/OT -Pain management as written -AM labs: Leukocytosis resolved. -Acute blood loss anemia. hemoglobin 8.3 this AM. Appears to be stabilizing. 8.6 yesterday. Hemovac drainage appears to be mostly serous breakdown at this point rather than blood. Last Hemovac emptying was 10ml's We will plan on discontinuing the drain today along with the larger portion of dressing. Continue brisa. -DVT prophylaxis: SCDs, teds, aspirin 81 mg -Discharge planning: Plan on discharge home today if okay with hospitalist service. I will discuss that with them. Admission and Anticipated Discharge Date Admission Date: July 25, 2023 Subjective Postop day 3 Patient sitting up in bed awake and alert. No complaints this morning. Pain is controlled. She denies any lightheadedness currently this morning. She states that she has been feeling much better. Physical Exam Physical Exam: Dressings are clean, dry, and intact. Hemovac is still present and has some serous drainage in the tube but no overt bleeding. Calves are soft and nontender. Neurovascular intact. Toes are mobile. Results & Data Vital Signs (Past 12 Hours) Vital Signs Temp Pulse Resp BP Pulse Ox O2 Del Method 07/28/23 07:35 36.7 C 87 16 116/71 98 Room Air Laboratory Results 07/28/23 07/28/23 07/27/23 Range/Units 05:35 05:35 05:51 WBC 5.57 (4.8-10.8) K/ul RBC 2.81 L (4.20-5.40) M/uL Hgb 8.3 L (12.0-16.0) g/dl Hct 25.3 L (37.0-47.0) % MCV 90.0 (80.0-100.0) fL MCH 29.5 (25.0-34.0) pg MCHC 32.8 (32.0-36.0) g/dL RDW Std Deviation 47.2 H (36.4-46.3) fL RDW Coeff of [place] 14.5 (11.5-14.5) % Plt Count 161 (130-400) K/uL MPV 10.3 (9.4-12.4) fL Sodium 137 (136-145) mmol/L Potassium 3.8 (3.5-5.1) mmol/L Chloride 106 (98-107) mmol/L Carbon Dioxide 27 (21-32) mmol/L Anion Gap 4 (3-11) BUN 18 (6-23) mg/dl Creatinine 0.65 (0.6-1.2) mg/dl Est Cr Clr Drug Dosing 71.5 ml/min Est GFR ( Amer) 100.0 ml/min Est GFR (Non-Af Amer) 86.2 ml/min BUN/Creatinine Ratio 27.7 H (10-20) Glucose 100 H (70-99(Fasting)) mg/dl Calcium 7.6 L (8.6-10.3) mg/dl Ferritin 83.2 (8-388) ng/ml
--- NOTE | 2023-08-01 16:16 | Discharge Summary ---
Date of Service August 01, 2023 Admission HPI Per Admitting Provider 78yo female with PMHx significant for CKD, HTN, lymphoma, PVD who presents with ongoing left knee pain. Pain is interfering with her daily activity. She has failed conservative measures and would like to proceed with surgical intervention. Patient denies headaches, sweats, fevers, chills, double vision, blurred vision, cough, sore throat, dysphagia, chest pain, sob, wheezing, n/v/d/c, numbness, tingling, fatigue, urinary symptoms, mood disorders. ROS positive for left knee pain and stiffness. Admission Exam Per Admitting Provider Constitutional: well developed and well nourished; no acute distress Eyes: PERRL, conjunctivae normal, anicteric sclerae ENMT: external ear and nose normal, oropharynx normal Neck: trachea midline, no thyromegaly Respiratory: normal respiratory effort, lungs clear to auscultation Cardiovascular: RRR, no murmur, no edema Musculoskeletal: Left knee: Varus alignment. medial joint line tenderness. Mild swelling. Moderate crepitation. Positive Savage's. Negative valgus stress, negative varus. ROM -5-90 degrees. Skin: no rashes, warm and dry Neurologic: patellar DTR's 2+ bilat, sensation intact Psychiatric: A+Ox3, euthymic affect Principal Diagnosis Left knee osteoarthritis Discharge Exam Dressings are clean, dry, and intact. Hemovac is still present and has some serous drainage in the tube but no overt bleeding. Calves are soft and nontender. Neurovascular intact. Toes are mobile. Discharge Data Allergies Allergy/AdvReac Type Severity Reaction Status Date / Time No Known Allergies Allergy Verified 07/25/23 07:52 Consultations 07/23/23 08:53 Consult Hospitalist Routine Procedures Performed Operation Date: 07/25/23 09:45 Actual Procedures p Left Total Knee Arthroplasty(Left) - Nash Mai MD Ordered Studies 07/25/23 05:00 US - OR guided needle placemen Routine Hospital Course (1) Primary osteoarthritis of left knee: Postop day #3 left total knee arthroplasty -PT/OT -Pain management as written -AM labs: Leukocytosis resolved. -Acute blood loss anemia. hemoglobin 8.3 this AM. Appears to be stabilizing. 8.6 yesterday. Hemovac drainage appears to be mostly serous breakdown at this point rather than blood. Last Hemovac emptying was 10ml's We will plan on discontinuing the drain today along with the larger portion of dressing. Continue brisa. -DVT prophylaxis: SCDs, teds, aspirin 81 mg -Discharge planning: Plan on discharge home today if okay with hospitalist service. I will discuss that with them. Lab Results 07/26/23 07/26/23 07/27/23 Range/Units 05:41 05:41 05:51 WBC 12.80 H 6.53 (4.8-10.8) K/ul RBC 3.57 L 3.01 L (4.20-5.40) M/uL Hgb 10.3 L 8.8 L (12.0-16.0) g/dl Hct 30.9 L 26.7 L (37.0-47.0) % MCV 86.6 88.7 (80.0-100.0) fL MCH 28.9 29.2 (25.0-34.0) pg MCHC 33.3 33.0 (32.0-36.0) g/dL RDW Std Deviation 44.0 45.7 (36.4-46.3) fL RDW Coeff of [place] 13.9 14.3 (11.5-14.5) % Plt Count 190 164 (130-400) K/uL MPV 10.2 9.8 (9.4-12.4) fL Sodium 139 (136-145) mmol/L Potassium 3.8 (3.5-5.1) mmol/L Chloride 107 (98-107) mmol/L Carbon Dioxide 25 (21-32) mmol/L Anion Gap 7 (3-11) BUN 19 (6-23) mg/dl Creatinine 0.78 (0.6-1.2) mg/dl Est Cr Clr Drug Dosing 59.6 ml/min Est GFR ( Amer) 85.6 ml/min Est GFR (Non-Af Amer) 73.8 ml/min BUN/Creatinine Ratio 24.4 H (10-20) Glucose 133 H (70-99(Fasting)) mg/dl Calcium 8.0 L (8.6-10.3) mg/dl Iron (35-150) mcg/dl TIBC (250-450) mcg/dl Unsaturated IBC (155-355) mcg/dl Transferrin % Sat (15-50) % Ferritin (8-388) ng/ml 07/27/23 07/28/23 07/28/23 Range/Units 05:51 05:35 05:35 WBC 5.57 (4.8-10.8) K/ul RBC 2.81 L (4.20-5.40) M/uL Hgb 8.3 L (12.0-16.0) g/dl Hct 25.3 L (37.0-47.0) % MCV 90.0 (80.0-100.0) fL MCH 29.5 (25.0-34.0) pg MCHC 32.8 (32.0-36.0) g/dL RDW Std Deviation 47.2 H (36.4-46.3) fL RDW Coeff of [place] 14.5 (11.5-14.5) % Plt Count 161 (130-400) K/uL MPV 10.3 (9.4-12.4) fL Sodium 140 137 (136-145) mmol/L Potassium 4.0 3.8 (3.5-5.1) mmol/L Chloride 109 H 106 (98-107) mmol/L Carbon Dioxide 26 27 (21-32) mmol/L Anion Gap 5 4 (3-11) BUN 20 18 (6-23) mg/dl Creatinine 0.67 0.65 (0.6-1.2) mg/dl Est Cr Clr Drug Dosing 69.4 71.5 ml/min Est GFR ( Amer) 99.0 100.0 ml/min Est GFR (Non-Af Amer) 85.4 86.2 ml/min BUN/Creatinine Ratio 29.9 H 27.7 H (10-20) Glucose 100 H 100 H (70-99(Fasting)) mg/dl Calcium 7.7 L 7.6 L (8.6-10.3) mg/dl Iron 22 L (35-150) mcg/dl TIBC 279 (250-450) mcg/dl Unsaturated IBC 257 (155-355) mcg/dl Transferrin % Sat 8 L (15-50) % Ferritin 83.2 (8-388) ng/ml Total Time Total Time Spent Total Time Spent (In Minutes): 20 Discharge Plan Discharge Items Patient Disposition: Home - Self-Care Reason For Visit: Left Knee Osteoarthritis Discharge Diagnosis: Left knee osteoarthritis Activity: Per Instructions section Weightbearing: Full weightbearing Non-emergency contact: Surgeon Call non-emergency contact if: you have any medication questions, your pain is unusual for you, you have a fever, your temperature is above 101, your wound has increased redness and your wound has increased drainage Follow-up/Referrals: Holger Grewal MD [Primary Care Provider] - Diet: Regular Addtl Attending Provider Instructions: ACTIVITY RECOMMENDATIONS: SELF CARE INSTRUCTIONS AFTER TOTAL KNEE REPLACEMENT A. You may need to continue a physical therapy program after discharge from the hospital. There are several options available to you. Your doctor will assist you in selecting the best one for you. 1. An out-patient facility 2 to 3 times a week for therapy or home therapy. 2. Continue working on all exercises taught to you in the hospital. Your goals should be to increase bending of your knee to 90 degrees and beyond and to fully straighten your knee. B. You may progress at your own pace from walking with a walker or crutches to a cane; then to no assistive devices. C. Make walking a part of your daily routine. Be up as much as comfortable with rest periods throughout the day. Rest with leg elevation is very important. Use the ice wrap frequently for the first 3-4 weeks. D. There are no restrictions on activities. You may ride in a car, shop, participate in talent acquisition specialist and all social activities. E. Wear the long elastic stockings (BELA hose) 20 hours a day for 2 weeks after surgery. They can be removed several times a day for laundering and for a bath. F. You may shower, no tub baths until cleared by your doctor. SPECIAL CARE INSTRUCTIONS: VERY IMPORTANT TO READ AND REVIEW A. There are a few signs you need to watch for after you are home. Call [facility] if you notice any of the followin. Increased severe knee pain. Some pain is expected especially when you exercise. 2. Increased swelling in your leg or knee; pain or swelling of the calf muscle in either lower leg. 3. Any fluid drainage from the incision. 4. Shortness of breath or chest pain. B. Please call [facility] at if you have any concerns or questions about your operation or recovery. The doctor or his nurse will return your call promptly. C. You must take antibiotics before dental work, bladder, bowel or other surgery. Your doctor will provide you with a permanent care to carry describing this precaution. IMPORTANT: * REMEMBER TO TAKE ASPIRIN, 81 MG, TWICE DAILY FOR 4 WEEKS UNLESS OTHERWISE DIRECTED. THIS IS YOUR BLOOD THINNER. * CALL IF INCREASED PAIN, REDNESS, DRAINAGE OR FEVER GREATER THAT 101. * WEAR BELA HOSE 20 HOURS PER DAY FOR 2 WEEKS. There is a large suction dressing covering your incision. This will help pull any excess drainage from the wound and allow your incision to heal properly. You may shower with this if you can keep the unit outside of the shower. If any bleeding or leakage is noted please call your doctor's office. This will remain on your incision for 7 days and then should be removed. This can be done yourself or by the home nursing staff if applicable. The entire unit is disposable once removed. Once removed, keep incision clean and dry. If redness or drainage is noted, please call your surgeon. IF INCISION IS LEAKING THROUGH DRESSING, CALL THE OFFICE . FOLLOW UP VISIT: If appointment is not already scheduled: Please call [facility] to make a follow-up appointment for 2 weeks after your surgery at . Stand-Alone Forms: My [facility], Smoking Cessation Medications and DC Order Prescriptions: New celecoxib [Celebrex] 200 mg Capsule 200 mg PO BID Qty: 60 0RF aspirin 81 mg Tablet,Delayed Release (Dr/Ec) 81 mg PO BID Qty: 60 0RF acetaminophen [Tylenol Extra Strength] 500 mg Tablet 1,000 mg PO Q8 Qty: 60 0RF polyethylene glycol 3350 [Miralax] 17 gram powder in packet 17 g PO DAILY PRN (Reason: constipation) Qty: 5 0RF oxycodone 5 mg tablet 5 mg PO Q4H MDD 6 PRN (Reason: pain) Qty: 30 0RF ferrous sulfate 325 mg (65 mg iron) Tablet,Delayed Release (Dr/Ec) 325 mg PO QAM Qty: 30 1RF Continued lisinopril 20 mg Tablet 20 mg PO BID chlorthalidone 25 mg Tablet 25 mg PO QAM rosuvastatin [Crestor] 10 mg Tablet 10 mg PO HS allopurinol 100 mg Tablet 100 mg PO QAM Discontinued ibuprofen [Advil] 200 mg Tablet 200 mg PO Q6H PRN (Reason: Pain) acetaminophen [Tylenol] 325 mg Tablet 325 mg PO QID PRN (Reason: Pain) Discharge Orders: Discharge Order (Routine); Ordered 07/28/23 Ordered By: Pete Brownlee Admission Data Admit Date/Time: 07/25/23 14:04 Attending Provider: Nash Mai Admit Provider: Nash Mai Primary Care Provider: Holger Grewal Other Providers: Phill Marie George A Other Interventions: Discharge Summary Assessment (RN) Last Done: 07/28/23 10:35
== END 2023-07-28 13:26 | disposition home or self-care (01) ==
LOC: ASU 07:29 → 3E 07:29

== ENCOUNTER 2024-01-09 05:11 | Observation (INO) ==
--- NOTE | 2023-12-06 13:07 | PAT Medication Instructions ---
Medication Instructions Date of Service December 06, 2023 Home Medications Medication Instructions Recorded acetaminophen 500 mg tablet 1,000 mg (2 x 500 mg) PO Q8 #60 07/27/23 (Tylenol Extra Strength) tabs aspirin 81 mg tablet,delayed 81 mg PO BID #60 tabs 07/27/23 release ferrous sulfate 325 mg (65 mg 325 mg PO QAM #30 tabs 07/28/23 iron) tablet,delayed release oxycodone 5 mg tablet 5 mg PO Q4H PRN pain #30 tabs 07/28/23 polyethylene glycol 3350 17 gram 17 g PO DAILY PRN constipation #5 07/28/23 oral powder packet (Miralax) ea chlorthalidone 25 mg tablet 25 mg PO QAM lisinopril 20 mg tablet 20 mg PO BID rosuvastatin 10 mg tablet (Crestor) 10 mg PO HS allopurinol 100 mg tablet 100 mg PO QAM acetaminophen 500 mg tablet (Tylenol Extra Strength) 1,000 mg (2 x 500 mg) PO Q8 aspirin 81 mg tablet,delayed release 81 mg PO BID ferrous sulfate 325 mg (65 mg iron) tablet,delayed release 325 mg PO QAM oxycodone 5 mg tablet 5 mg PO Q4H PRN pain polyethylene glycol 3350 17 gram oral powder packet (Miralax) 17 g PO DAILY PRN constipation celecoxib 200 mg capsule (Celebrex) 200 mg PO BID Pain ASK your surgeon for instructions celecoxib 200 mg capsule (Celebrex) 200 mg PO BID Pain ASK your prescriber and surgeon aspirin 81 mg tablet,delayed release 81 mg PO BID DO NOT take the morning of surgery chlorthalidone 25 mg tablet 25 mg PO QAM lisinopril 20 mg tablet 20 mg PO BID ferrous sulfate 325 mg (65 mg iron) tablet,delayed release 325 mg PO QAM polyethylene glycol 3350 17 gram oral powder packet (Miralax) 17 g PO DAILY PRN constipation Take morning of surgery With a small sip of water, OTHERWISE NOTHING TO EAT OR DRINK AFTER MIDNIGHT: allopurinol 100 mg tablet 100 mg PO QAM acetaminophen 500 mg tablet (Tylenol Extra Strength) 1,000 mg (2 x 500 mg) PO Q8 oxycodone 5 mg tablet 5 mg PO Q4H PRN pain (if needed) Take evening before surgery lisinopril 20 mg tablet 20 mg PO BID rosuvastatin 10 mg tablet (Crestor) 10 mg PO HS acetaminophen 500 mg tablet (Tylenol Extra Strength) 1,000 mg (2 x 500 mg) PO Q8 oxycodone 5 mg tablet 5 mg PO Q4H PRN pain (if needed) polyethylene glycol 3350 17 gram oral powder packet (Miralax) 17 g PO DAILY PRN constipation (if needed) Other Notes If you have any questions please call us at [phone] or [phone] or [phone] or [phone]
--- NOTE | 2023-12-13 11:34 | Anesthesiology Consultation ---
Date of Service December 13, 2023 Assessment & Plan (1) Encounter for pre-operative examination: Plan - Case discussed in detail with Dr. Munoz including interval change since 06/2023 regarding cancer and recent radiation. He advised patient is acceptable to proceed with surgery at current status and no further evaluation or records are needed prior to surgery. - Outpatient joint assessment: Patient is currently scheduled for inpatient pathway. If re-evaluated and patient/surgeon requests outpatient pathway, patient is not recommended candidate for outpatient joint program from anesthesia standpoint. Chart Review Chart Review: Acceptable Risk for Surgery and Patient seen in Pre Admission Testing Teaching & Discussion Pre-Anesthesia Teaching/Discussion Notes: Instructed NPO after midnight before surgery, except medications with 15 cc of water. Medication instructions provided according to the PAT guidelines. History Surgery Operation Date: 01/09/24 10:05 Proposed Procedures p Right Total Knee Arthroplasty - Nash Mai MD Height/Weight Height: 5 ft 1 in Weight: 86.5 kg Allergies Allergy/AdvReac Type Severity Reaction Status Date / Time No Known Allergies Allergy Verified 12/06/23 09:25 Medications Home Medications Medication Instructions Recorded Confirmed Last Taken chlorthalidone 25 mg tablet 25 mg PO QAM 07/02/23 12/06/23 07/24/23 09:00 lisinopril 20 mg tablet 20 mg PO BID 07/02/23 12/06/23 07/24/23 20:00 rosuvastatin 10 mg tablet (Crestor) 10 mg PO HS 07/02/23 12/06/23 07/24/23 20:00 allopurinol 100 mg tablet 100 mg PO QAM 07/13/23 12/06/23 07/25/23 05:30 acetaminophen 500 mg tablet 1,000 mg (2 x 500 mg) PO Q8 #60 07/27/23 12/06/23 Unknown (Tylenol Extra Strength) tabs aspirin 81 mg tablet,delayed 81 mg PO BID #60 tabs 07/27/23 12/06/23 Unknown release ferrous sulfate 325 mg (65 mg 325 mg PO QAM #30 tabs 07/28/23 12/06/23 Unknown iron) tablet,delayed release oxycodone 5 mg tablet 5 mg PO Q4H PRN pain #30 tabs 07/28/23 12/06/23 Unknown polyethylene glycol 3350 17 gram 17 g PO DAILY PRN constipation #5 07/28/23 12/06/23 Unknown oral powder packet (Miralax) ea celecoxib 200 mg capsule (Celebrex) 200 mg PO BID Pain 12/06/23 12/06/23 Unknown Past Medical History Medical History Acid reflux controlled, stable per pt CKD (chronic kidney disease) stage 2, GFR 60-89 ml/min no specialist History of cancer of stomach dx 2018 > receiving radiation at [facility] based on PET scan > to be finished December 24 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 Exercise / Class Metabolic Activity II 4-5 Yardwork/Stairs/Walk up hill (denies chest discomfort or shortness of breath with 1 FOS) Past Surgical History Surgical History History of bilateral tubal ligation History of cataract surgery bilat History of colonoscopy History of esophagogastroduodenoscopy (EGD) History of tooth extraction History of total knee replacement left Past Anesthesia History No Hx of Anesthesia Complications and No Family Hx of Anesthesia Complications History of PONV No Hx of PONV and No Hx of Motion Sickness Social History Smoking Status: Never smoker Do You Dip or Chew Tobacco: No Hx Alcohol Use: No Hx Substance Use: No substance use type: does not use Review of Systems Patient denies chest pain, shortness of breath, dyspnea on exertion, snoring, witnessed apneas, fever, chills, cough, wheezing, or palpitations. Physical Exam Vital Signs Vitals BP 111/73 P 79 TEMP 98 SP02 98% on RA RESP 18 Physical Patient resting comfortably in chair in no acute distress, alert and oriented, responding appropriately throughout visit Full cervical extension range of motion without pain TMD 3.5 finger breadths Mallampati Score 2 Dentition: chipped tooth front upper, denies loose teeth, caps/crowns, implants or bridges Lungs: normal respiratory effort. Good air movement, clear throughout to auscultation, no adventitious breath sounds Cardiac: regular rate and rhythm, no murmurs noted Carotid arteries: negative bruit bilat Lab Results Anesthesia Preop Results Results Anesthesia Widget: WBC 4.47 K/ul (4.8-10.8) L 12/13/23 Hgb 12.5 g/dl (12.0-16.0) 12/13/23 Hct 39.1 % (37.0-47.0) 12/13/23 Plt 199 K/uL (130-400) 12/13/23 Na 139 mmol/L (136-145) 12/13/23 K 4.4 mmol/L (3.5-5.1) 12/13/23 Cl 106 mmol/L (98-107) 12/13/23 CO2 26 mmol/L (21-32) 12/13/23 BUN 14 mg/dl (6-23) 12/13/23 Creat 0.49 mg/dl (0.6-1.2) L 12/13/23 Glucose Level 86 mg/dl (70-99(Fasting)) 12/13/23 PT 10.2 Seconds (9.0-12.0) 12/13/23 PTT 27 Seconds (21-31) 12/13/23 INR 0.9 (0.9-1.1) 12/13/23 Urine Color Yellow 12/13/23 Urine Appearance Clear (Clear) 12/13/23 Urine pH 5.5 (4.5-7.5) 12/13/23 Urine Specific [place] 1.021 (1.000-1.030) 12/13/23 Urine Protein Negative (Negative) 12/13/23 Urine Glucose (UA) Negative (Negative) 12/13/23 Urine Ketones 1+ (Negative) H 12/13/23 Urine Blood Negative (Negative) 12/13/23 Urine Nitrite Negative (Negative) 12/13/23 Urine Bilirubin Negative (Negative) 12/13/23 Urine Urobilinogen Negative (Negative) 12/13/23 Urine Leukocyte Esterase 1+ (Negative) H 12/13/23 Urine WBC (Auto) 1-5 /hpf (0-5) 12/13/23 Urine RBC (Auto) 0-4 /hpf (0-4) 12/13/23 Urine Hyaline Casts (Auto) 1-5 /lpf (0-5) 12/13/23 Urine Epithelial Cells (Auto) >30 /lpf (0-5) H 12/13/23 Urine Bacteria (Auto) Negative (Negative) 12/13/23 Blood Type O Positive 12/13/23 Antibody Screen NEGATIVE 12/13/23 Testing Electrocardiogram Date: 07/13/23 NSR, rate [address] b[address] minor nonspecific [address] abnormality Chest X-Ray Date: 07/13/23 No acute process.
--- NOTE | 2024-01-06 18:17 | History & Physical Report ---
Date of Service January 06, 2024 Assessment & Plan (1) Primary osteoarthritis of right knee: Plan: Treatment options discussed with the patient. They failed conservative measures and would like to proceed with surgery. Risks, benefits and alternatives to surgery including but not limited to infection, DVT, pain, stiffness, need for revision surgery, damage to blood vessels, damage to nerves, PE, , were discussed with the patient and they wish to proceed. Plan for right total knee arthroplasty scheduled for January 08 at [facility] with Dr. Mai. Plan on outpatient therapy postop. Plan on aspirin 81 mg twice daily for 1 month postop for DVT prophylaxis. All questions answered. Patient will follow-up postop. History of Present Illness Chief Complaint: Right knee Primary Care Provider: Holger Grewal MD 78yo female with PMHx significant for CKD, HTN, lymphoma, PVD who presents with ongoing right knee pain. Pain is interfering with her daily activity. She has failed conservative measures and would like to proceed with surgical intervention. Patient denies headaches, sweats, fevers, chills, double vision, blurred vision, cough, sore throat, dysphagia, chest pain, sob, wheezing, n/v/d/c, numbness, tingling, fatigue, urinary symptoms, mood disorders. ROS positive for right knee pain and stiffness. Allergies Allergy/AdvReac Type Severity Reaction Status Date / Time No Known Allergies Allergy Verified 12/06/23 09:25 Home Medications Medication Instructions Recorded Confirmed Type chlorthalidone 25 mg tablet 25 mg PO QAM 07/02/23 12/06/23 History lisinopril 20 mg tablet 20 mg PO BID 07/02/23 12/06/23 History rosuvastatin 10 mg tablet (Crestor) 10 mg PO HS 07/02/23 12/06/23 History allopurinol 100 mg tablet 100 mg PO QAM 07/13/23 12/06/23 History acetaminophen 500 mg tablet 1,000 mg (2 x 500 mg) PO Q8 #60 07/27/23 12/06/23 Rx (Tylenol Extra Strength) tabs aspirin 81 mg tablet,delayed 81 mg PO BID #60 tabs 07/27/23 12/06/23 Rx release ferrous sulfate 325 mg (65 mg 325 mg PO QAM #30 tabs 07/28/23 12/06/23 Rx iron) tablet,delayed release oxycodone 5 mg tablet 5 mg PO Q4H PRN pain #30 tabs 07/28/23 12/06/23 Rx polyethylene glycol 3350 17 gram 17 g PO DAILY PRN constipation #5 07/28/23 12/06/23 Rx oral powder packet (Miralax) ea celecoxib 200 mg capsule (Celebrex) 200 mg PO BID Pain 12/06/23 12/06/23 History Past Med/Surg History Medical History Acid reflux controlled, stable per pt CKD (chronic kidney disease) stage 2, GFR 60-89 ml/min no specialist History of cancer of stomach dx 2018 > receiving radiation at [facility] based on PET scan > to be finished December 24 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 Hyperlipidemia Hypertension controlled, stable per pt Lymphoma dx 2018 > receiving radiation at [facility] after PET scan > to be finished December 24 Osteoarthritis Peripheral vascular disease Surgical History History of bilateral tubal ligation History of cataract surgery bilat History of colonoscopy History of esophagogastroduodenoscopy (EGD) History of tooth extraction History of total knee replacement left Social History Smoking Status: Never smoker Second Hand Exposure: No; Do You Dip or Chew Tobacco: No; Tobacco Cessation Education Requested by Patient: No Hx Alcohol Use: No Hx Substance Use: No Preferred Language: Turkish Communication Ability: Effective Franchise Sales Representative Required: No Beliefs That Will Affect Care: None Current Living Situation: Family Other Information That Helps Us Care for You: No Feels Safe at Home: Yes Safety Concerns: Feels Safe At This Time Assistive Devices: None Review of Systems All systems reviewed & are unremarkable except as noted in HPI & below Physical Exam Constitutional: well developed and well nourished; no acute distress Eyes: PERRL, conjunctivae normal, anicteric sclerae ENMT: external ear and nose normal, oropharynx normal Neck: trachea midline, no thyromegaly Respiratory: normal respiratory effort, lungs clear to auscultation Cardiovascular: RRR, no murmur, no edema Musculoskeletal: Right knee: Varus alignment. Mild effusion. Tenderness medial joint line. Moderate crepitation with range of motion. Positive Savage's. Stable valgus and varus stress test. Range of motion -10 to 70 degrees. Skin: no rashes, warm and dry Neurologic: patellar DTR's 2+ bilat, sensation intact Psychiatric: A+Ox3, euthymic affect Results & Data Diagnostic Findings Right knee radiographs demonstrate varus alignment. There is end-stage osteoarthritis, [id number] medial compartment and some bone loss medial compartment.
[2024-01-09] MEDS: LR 500ML BOLUS, THEN 15ML/HR IV SCH (05:55)
[2024-01-09] MEDS: LR 60ML/HR IV SCH (05:56)
[2024-01-09] MEDS: dexAMETHasone**PF** 10 MG/ML VIAL IV SCH (05:56)
[2024-01-09] MEDS: CeleBREX 200 MG CAP PO SCH ×2 (05:56→19:55)
[2024-01-09] MEDS: FAMOTIDINE 20 MG TAB PO SCH (05:56)
[2024-01-09] MEDS: ACETAMINOPHEN 500 MG TAB PO SCH ×2 (05:56→13:25)
[2024-01-09] MEDS: GABAPENTIN 300 MG CAP PO SCH (05:56)
[2024-01-09] MEDS: METOCLOPRAMIDE HCL 10 MG TABLET PO SCH (05:56)
[2024-01-09] MEDS ORDERED: EPINEPHrine INJ 1 MG/ML AMP ONE (06:11)
[2024-01-09] MEDS ORDERED: BUPIVACAINE 0.25% PF 30 ML VIAL ONE (06:12)
[2024-01-09] MEDS ORDERED: BUPIVACAINE 0.5 % 5 MG/1 ML PF 10ML VIAL ONE (06:12)
[2024-01-09] MEDS ORDERED: DEXAMETHASONE SOD INJ 4 MG/ML VIAL ONE (06:12)
[2024-01-09] MEDS ORDERED: MIDAZOLAM HCL 1 MG/ML 2ML VIAL ONE ×2 (06:42→07:16)
[2024-01-09] MEDS ORDERED: fentaNYL citrate PF 100 MCG/2 ML VIAL ONE (06:43)
[2024-01-09] MEDS ORDERED: WATER, STERILE FOR INJ 10 ML VIAL ONE (06:44)
[2024-01-09] MEDS ORDERED: ePHEDrine sulfate 50 MG/ML AMP ONE (06:44)
[2024-01-09] MEDS ORDERED: PROPOFOL IV EMULSION 10 MG/ML 20 ML VIAL IV ONE ×6 (06:45→09:47)
[2024-01-09] MEDS ORDERED: fentaNYL citrate PF 100 MCG/2 ML VIAL IV PRN (06:58)
[2024-01-09] MEDS ORDERED: ATROPINE SULFATE 0.1 MG/ML 10ML SYR IV PRN (06:58)
[2024-01-09] MEDS ORDERED: ONDANSETRON INJ 2 MG/ML 2 ML VIAL IV PRN ×2 (06:58→11:49)
[2024-01-09] MEDS ORDERED: ePHEDrine sulfate 50 MG/ML AMP IV PRN (06:58)
[2024-01-09] MEDS: TRANEXAMIC ACID 1,000 MG **IV Pre-op IV SCH (06:59)
--- NOTE | 2024-01-09 07:02 | History & Physical Bridge Note ---
Date of Service January 09, 2024 History & Physical Bridge Note I have examined the patient, reviewed the History & Physical and in the interval since the performance of the History & Physical I have noted the following changes of clinical significance: no changes noted
[2024-01-09] MEDS: ceFAZolin 2000MG 2,000 MG/15 ML SYR IV SCH ×2 (07:22→16:23)
[2024-01-09] MEDS: ORTHO JOINT ANESTHETIC ONE (08:15)
[2024-01-09] MEDS: ROPIV 0.5% 246mg, Ketorolac 30mg, EPINEPHrine 0.5mg in NSS INFIL SCH (08:15)
--- NOTE | 2024-01-09 09:39 | Post Operative Brief Note ---
Immediate Post Op Note v1 Date of Surgery January 09, 2024 Pre & Post Diagnosis Operation Date: 01/09/24 07:00 Pre-Op Diagnosis: Right Knee Osteoarthritis Post-Op Diagnosis: Right Knee Osteoarthritis I identified the patient and participated in the time-out.: Yes Procedure Operation Date: 01/09/24 07:00 Actual Procedures p Right Total Knee Arthroplasty(Right), brisa and Acticoat superficial wound VAC application- Nash Mai MD Surgeon Nash Mai MD Sole Trimmer Kieran READ Estimated Blood Loss 5 Findings Consistent with Post-Op Diagnosis Specimens Bone cuts Drains Hemovac Drain Anesthesia Type MAC Spinal Regional Complications none Disposition Disposition: Recovery Room Overlapping Procedure I was present for: the critical portions of procedure.
[2024-01-09] MEDS ORDERED: ONDANSETRON INJ 2 MG/ML 2 ML VIAL ONE (09:58)
[2024-01-09] MEDS ORDERED: PHENYLEPHRINE 100MCG/ML 10ML SYR IV ONE (10:00)
--- NOTE | 2024-01-09 10:17 | Anesthesiology Progress Note ---
Date of Service January 09, 2024 Anesthesia Post Procedure Vital Signs Vital Signs: Temp Pulse Resp BP Pulse Ox O2 Del Method 01/09/24 05:35 Room Air 01/09/24 05:35 36.4 C L 91 H 18 132/77 98 Room Air Pain Intensity Right Knee: Pain Intensity: 0 Transfer of Care Handoff Completed per policy Notes Mental Status: alert / awake / arousable Patient Amnestic to Procedure: Yes Nausea / Vomiting: adequately controlled Pain: adequately controlled Airway Patency, RR, SpO2: stable & adequate BP & HR: stable & adequate Hydration State: stable & adequate Neuraxial Anesthesia: was administered and sensory block is resolving Anesthetic Complications: no major complications apparent and Pt Satisfied with anesthetic care
[2024-01-09] MEDS ORDERED: MAGNESIUM HYDROXIDE SUSP 30 ML UDC PO PRN (11:49)
[2024-01-09] MEDS ORDERED: bisacodyL 10 MG SUPP PR PRN (11:49)
[2024-01-09] MEDS ORDERED: HYDROmorphone INJ 0.5 MG/0.5 ML SYR IV PRN (11:49)
[2024-01-09] MEDS ORDERED: NALOXONE HCL 0.4 MG/1 ML VIAL/CARP IV PRN (11:49)
[2024-01-09] MEDS ORDERED: POLYETHYLENE (MIRALAX) 17 GM PACK PO PRN (11:49)
[2024-01-09] MEDS ORDERED: METOCLOPRAMIDE HCL INJ 5 MG/ML 2 ML VIAL IV PRN (11:49)
--- NOTE | 2024-01-09 11:56 | XRay Report ---
XR knee RT 1 or 2V routine CLINICAL HISTORY: Surgical Post Op TECHNIQUE: 2 views of the right knee were obtained. Comparison: None available at the time of this dictation. FINDINGS: Patient is status post total knee arthroplasty with expected postsurgical changes including soft tiss ue swelling and subcutaneous emphysema. No periarticular lucency or hardware fracture is seen. IMPRESSION: Expected postoperative appearance status post placement of total knee arthroplasty. ACT 112: Negative or not required by law. Electronically signed by: Leonardo Victor M.D. 01/09/2024 11:54 AM
[2024-01-09] MEDS: TRANEXAMIC ACID 1,000 MG **IV Intra-op IV SCH (12:09)
[2024-01-09] MEDS: SODIUM CHLORIDE 0.9% 1,000 ML IV SCH (12:54)
--- NOTE | 2024-01-09 13:35 | Hospitalist Consultation ---
Date of Consultation January 09, 2024 Assessment & Plan (1) Primary osteoarthritis of right knee: Assessment: 1. End-stage osteoarthritis right knee status post right total knee arthroplasty postop day 0 today. Doing well from a postoperative standpoint. 2. Gastroesophageal reflux disease continue same home medications. 3. CKD stage II labs will be checked tomorrow to assure stability. 4. 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 5. Dyslipidemia continue same home meds in the form of Crestor. 6. Hypertension continue same home medications. 7. Peripheral vascular disease by history appears stable on exam. 8. History of lymphoma and stomach cancer she undergoes intermittent radiation treatment currently through our [facility]. Plan: As described above. Continue home medications for her chronic medical problems. DVT prophylaxis postoperatively per orthopedics. Morning labs to be obtained. We thank you for the opportunity to Co. participate in the care of Ms. Easley as she continues to convalesce her right total knee arthroplasty today. Will continue to follow on a daily basis. History of Present Illness Reason for Consultation: No medical management status post right total knee arthroplasty. Attending Physician: Nash Mai MD History of Present Illness This is a pleasant 78-year-old female who presented to the [facility] this morning to undergo elective right total knee arthroplasty. Patient underwent the procedure and tolerated it well with no apparent complication. Hospitalist consultation was obtained for further postoperative medical management. Allergies Allergy/AdvReac Type Severity Reaction Status Date / Time No Known Allergies Allergy Verified 01/09/24 05:33 Home Medications Medication Instructions Recorded Confirmed Type chlorthalidone 25 mg tablet 25 mg PO QAM 07/02/23 01/09/24 History lisinopril 20 mg tablet 20 mg PO BID 07/02/23 01/09/24 History rosuvastatin 10 mg tablet (Crestor) 10 mg PO HS 07/02/23 01/09/24 History allopurinol 100 mg tablet 100 mg PO QAM 07/13/23 01/09/24 History acetaminophen 500 mg tablet 1,000 mg (2 x 500 mg) PO Q8 #60 07/27/23 01/09/24 Rx (Tylenol Extra Strength) tabs aspirin 81 mg tablet,delayed 81 mg PO BID #60 tabs 07/27/23 01/09/24 Rx release ferrous sulfate 325 mg (65 mg 325 mg PO QAM #30 tabs 07/28/23 01/09/24 Rx iron) tablet,delayed release oxycodone 5 mg tablet 5 mg PO Q4H PRN pain #30 tabs 07/28/23 01/09/24 Rx polyethylene glycol 3350 17 gram 17 g PO DAILY PRN constipation #5 07/28/23 01/09/24 Rx oral powder packet (Miralax) ea celecoxib 200 mg capsule (Celebrex) 200 mg PO BID Pain 12/06/23 01/09/24 History Patient History Medical History Acid reflux controlled, stable per pt CKD (chronic kidney disease) stage 2, GFR 60-89 ml/min no specialist History of cancer of stomach dx 2018 > receiving radiation at [facility] based on PET scan > to be finished December 24 History of parotid cancer 2019 > treatment completed Hyperlipidemia Hypertension controlled, stable per pt Lymphoma dx 2019 > receiving radiation at [facility] after PET scan > to be finished December 24 Osteoarthritis Peripheral vascular disease Surgical History History of bilateral tubal ligation History of cataract surgery bilat History of colonoscopy History of esophagogastroduodenoscopy (EGD) History of tooth extraction History of total knee replacement left Social History Smoking Status: Never smoker Second Hand Exposure: No; Do You Dip or Chew Tobacco: No; Tobacco Cessation Education Requested by Patient: No Hx Alcohol Use: No Hx Substance Use: No Preferred Language: Luxembourgish Communication Ability: Effective Plant Engineering Supervisor Required: No Beliefs That Will Affect Care: None Current Living Situation: Family Other Information That Helps Us Care for You: No Feels Safe at Home: Yes Safety Concerns: Feels Safe At This Time Assistive Devices: Cane and Walker Review of Systems Review of Systems: A 10 point review of system was obtained and unless otherwise stated here or in history of present illness are negative and noncontributory to chief complaint. Physical Exam Physical Exam: In General: In general is a 78-year-old female who is alert and oriented x 3 at the time of my exam she interacts appropriately and pleasantly. She is accompanied by her daughter at the time of my examination with whom she lives. The patient denies any current postoperative pain whatsoever. Her tentative plan is to discharge to home for rehab in the next 24 to 48 hours. She did have a left total knee arthroplasty a couple years ago and did just fine with the same plan. HEENT: Normocephalic atraumatic pupils are equal round and reactive to light bilaterally. No scleral icterus no conjunctival injection external auditory canals are patent septum is in the midline nose is without discharge oral mucosa is pink and moist without lesion. NECK: Supple no rigidity no lymphadenopathy no thyromegaly no carotid bruits no JVD no masses. HEART: Regular rate and rhythm I do not appreciate any ectopy or rub. No murmur. LUNGS: Clear to auscultation bilaterally and anteriorly with no evidence of adventitious sounds/wheezes rales or rhonchi. ABDOMEN: Soft nontender, no rebound, no peritoneal signs, positive bowel sounds, no appreciable organomegaly. EXTREMITIES: I neurovascularly intact bilateral lower extremities. The right lower extremity is currently postoperatively dressed dressing is intact clean and dry with a drain in place. Ntact, no peripheral cyanosis, clubbing or edema. Strength is 5 out of 5 in extremities x4, no pathological reflexes. NEUROLOGICAL: Cranial nerves II through XII are grossly intact with no focal deficit elicited upon examination. No tremor. Results & Data Results & Data Vital Signs (Past 12 Hours) Vital Signs Temp Pulse Pulse Pulse Resp BP BP 01/09/24 13:19 36.6 C 102 H 18 107/65 01/09/24 12:49 36.6 C 100 H 16 112/69 01/09/24 12:19 36.6 C 105 H 18 111/67 01/09/24 11:49 36.5 C 90 16 110/64 01/09/24 11:20 91 H 16 108/58 L 01/09/24 11:05 92 H 12 101/54 L 01/09/24 10:55 36.4 C L 91 H 18 106/53 L 01/09/24 10:45 89 18 101/54 L 01/09/24 10:35 90 20 102/53 L 01/09/24 10:25 36.2 C L 99 H 16 101/54 L 01/09/24 05:35 01/09/24 05:35 36.4 C L 91 H 18 132/77 Pulse Ox O2 Del Method O2 Flow Rate 01/09/24 13:19 97 Nasal Cannula 01/09/24 12:49 99 Nasal Cannula 01/09/24 12:19 96 Nasal Cannula 01/09/24 11:49 98 Nasal Cannula 2 01/09/24 11:20 97 Room Air 01/09/24 11:05 96 Room Air 01/09/24 10:55 96 Room Air 01/09/24 10:45 98 Oxymask 4 01/09/24 10:35 98 Oxymask 4 01/09/24 10:25 100 Oxymask 6 01/09/24 05:35 Room Air 01/09/24 05:35 98 Room Air PG Care Time/CCT Total # of Minutes Spent Total Time Spent with Patient: Total time spent is greater than 50% in coordination of care (as documented) at patient's floor/unit and/or counseling patient: Coding Level of Care Code 99503 IN/OBS CONSULT LVL 5,80M Diagnoses Primary osteoarthritis of right knee M17.11
--- NOTE | 2024-01-09 19:22 | Operative Report ---
Post Operative Report Pre & Post Diagnosis Operation Date: 01/09/24 07:00 Pre-Op Diagnosis: Right Knee Osteoarthritis Post-Op Diagnosis: Right Knee Osteoarthritis I identified the patient and participated in the time-out.: Yes Procedure Operation Date: 01/09/24 07:00 Actual Procedures p Right Total Knee Arthroplasty(Right), brisa and Acticoat superficial wound VAC application- Nash Mai MD Surgeon Nash Mai MD Phone Counselor Kieran READ Estimated Blood Loss 5 Findings Consistent with Post-Op Diagnosis Specimens Bone cuts Drains 2 Hemovac Anesthesia Type MAC Spinal Regional Complications none Disposition Disposition: Recovery Room Indications 78-year-old female with very severe right knee osteoarthritis and very limited function. She has successful left knee replacement by myself. She wants proceed with right knee replacement. Radiographs demonstrate severe tricompartmental degenerative arthritis [id number] with large osteophytes. Description of Procedure The patient was taken to the operating room and anesthetized under spinal MAC regional block. Patient was placed supine on the the operating table. A pneumatic tourniquet was placed about the moderate obese right upper thigh. The knee exam demonstrated 0 through 60 degrees range of motion. The involved leg was elevated exsanguinated with Esmarch bandage and the pneumatic tourniquet was raised to 325 millimeters mercury. A longitudinal incision was made across the anterior knee. Skin flaps were elevated. An incision was made into the medial retinaculum and extended up into the mid third of the quadriceps tendon and extended down to the tibial tubercle. Intra-articular findings demonstrated severe tricompartmental degenerative arthritis grade 4 medial lateral compartments with notch stenosis absent ACL chronic meniscus tears large patellar osteophytes. The knee was exposed by excising posterior cruciate ligament and menisci. The infrapatellar fat pad was resected. The fat pad over the anterior femur at the upper aspect of the articular surface was resected for placement of the component in that area. The [employer] total knee arthroplasty system was utilized for the procedure. Because of this stiffness of the knee and patellar arthritis and some relatively low lying patella cannot get retractors and to visualize the femur without addressing the patella first. A subperiosteal peel was performed around the lateral patella. Osteophytes were resected and the width was measured and width was reproduced using freehand cut technique and a 32 millimeter patella. Drill holes were made and the excess lateral facet was beveled off to prevent any impingement. And I was able to get retractors in place to expose the femur. The custom femoral cutting guide was pinned in position. The distal femoral cut was made. The size 3, right, 5 in 1 cutting block was placed. The anterior posterior and chamfer cuts were made. The tibia was then subluxed. The custom tibial cutting block was pinned in position and the proximal tibial cut was made with the oscillating saw. Flexion and extension gaps were balanced. Minor medial posterior medial releases were required. There were large posterior osteophytes r which had to be removed with curved osteotome and angled curette. The size 3 right tibial trial was externally rotated in line with the tibial tubercle and pinned in position. The punch for the stem was used. The femoral trial was inserted and centered the notch cutting devices were used and the collet was placed. Tibial trials were used for the insert. The size 15 trial gave balanced ligaments through full range of motion. Patella tracking was assessed with range of motion. The patella tracked centrally. The trials were removed. The Orthomix anesthetic cocktail was injected per protocol. The cut bone surfaces and soft tissue were copiously irrigated with pulsatile lavage saline solution. The final components were cemented with Refobacin cement. The final components were [employer]hew journey 2.0 size 3 right posterior stabilized femoral component, 3 right tibial component, 15 right posterior stabilized tibial polyethylene and a 32 mm symmetrical polyethylene patella. Xperience irrigation was placed over metal tray prior to polyethyle insertion. After the cement cured, the knee was then copiously irrigated with pulsatile lavage Xperience solution. 2 drains were brought out laterally connected to Hemovac. The quadriceps tendon and medial retinaculum were closed with interrupted [id number] #1 Vicryl sutures. The knee was taken through full range of motion and repair was secure. Knee range of motion was 0 through 120 degrees. the subcutaneous tissues were closed with 2-0 Vicryl sutures. The skin was closed with juan pablo. A brisa and Acticoat superficial wound VAC was applied. The tourniquet was let down and the patient had good capillary refill to the extremity. The patient tolerated the procedure well. My physician orthotic assistant Kieran READ participated as first helper and was integral part in all aspects of the procedure including prepping, draping, leg positioning, soft tissue retraction, instrument management and assisted in the closure , wound VAC application and will participate in postoperative care the patient. I attest to the content of the Intraoperative Record and any orders documented therein. Any exceptions are noted below.
[2024-01-09] MEDS: ROSUVASTATIN CALCIUM 10 MG TAB PO SCH (19:53)
[2024-01-09] MEDS: DOCUSATE SODIUM 100 MG CAP PO SCH (19:54)
[2024-01-09] MEDS: ASPIRIN 81 MG ECTAB PO SCH (19:54)
[2024-01-09] MEDS: SENNA 8.6 MG TAB PO SCH (19:54)
[2024-01-10 06:31] LABS: Calcium 8.3 mg/dl (8.6-10.3); Creatinine Clr Calc Pharmacy 81.2 ml/min; Est GFR (African American) 103.8 ml/min; Est GFR (Non-African American) 89.5 ml/min; Magnesium 1.8 mg/dl (1.7-2.4)
[2024-01-10 06:33] LABS: Hematocrit (blood only) 31.8 % (37.0-47.0); Hemoglobin 10.5 g/dl (12.0-16.0); Mean Corpuscular Hemoglobin 28.2 pg (25.0-34.0); Mean Corpuscular Volume 85.5 fL (80.0-100.0); Mean Platelet Volume 10.1 fL (9.4-12.4); Platelet Count 207 K/uL (130-400); RDW Coefficient of Variation 16.6 % (11.5-14.5); RDW Standard Deviation 51.9 fL (36.4-46.3); Red Blood Count 3.72 M/uL (4.20-5.40); White Blood Count 11.07 K/ul (4.8-10.8)
--- NOTE | 2024-01-10 07:15 | Orthopedic Progress Note ---
Date of Service January 10, 2024 Assessment & Plan (1) Primary osteoarthritis of right knee: Plan: Postop day #1 right total knee arthroplasty -PT/OT -Pain management as written -DVT prophylaxis: SCDs, teds, aspirin 81 mg twice daily -A.m. labs: Hemoglobin 10.5 from 12.5 preop. Acute blood loss anemia due to surgical loss versus dilutional. Mild leukocytosis likely reactive due to surgical stress versus perioperative steroids. Patient is asymptomatic. -Discharge planning: Plan on discharge home with outpatient therapy when stable. Patient's Hemovac output was 400 cc over the last shift. Continue Hemovac. Plan on likely discharge home tomorrow. Admission and Anticipated Discharge Date Admission Date: January 09, 2024 Subjective Patient is postop day 1 right total knee arthroplasty. She is feeling well this morning overall. Starting to have some pain. Still with some mild numbness into her foot but is improving. No other complaints. Denies chest pain, shortness of breath, nausea/vomiting/diarrhea, headaches or dizziness. Review of Systems Review of Systems: All systems reviewed & are unremarkable except as noted in Subjective Physical Exam Physical Exam: Right knee: Dressing is clean, dry, intact. Hemovac on suction. Toes are mobile with good dorsiflexion. No calf tenderness. Able to straight leg raise. Distal neurovascular status and sensation is grossly intact Results & Data Vital Signs (Past 12 Hours) Vital Signs Temp Pulse Resp BP Pulse Ox O2 Del Method 01/10/24 07:09 36.4 C L 80 20 104/67 98 Room Air 01/10/24 05:40 36.6 C 98 H 18 113/74 97 Room Air 01/10/24 02:04 36.7 C 103 H 14 100/58 L 97 Room Air 01/09/24 22:01 36.7 C 88 14 104/64 97 Room Air Laboratory Results Lab Results 01/10/24 Range/Units 05:44 WBC 11.07 H (4.8-10.8) K/ul RBC 3.72 L (4.20-5.40) M/uL Hgb 10.5 L (12.0-16.0) g/dl Hct 31.8 L (37.0-47.0) % MCV 85.5 (80.0-100.0) fL MCH 28.2 (25.0-34.0) pg MCHC 33.0 (32.0-36.0) g/dL RDW Std Deviation 51.9 H (36.4-46.3) fL RDW Coeff of Tico 16.6 H (11.5-14.5) % Plt Count 207 (130-400) K/uL MPV 10.1 (9.4-12.4) fL Sodium 139 (136-145) mmol/L Potassium 4.0 (3.5-5.1) mmol/L Chloride 107 (98-107) mmol/L Carbon Dioxide 23 (21-32) mmol/L Anion Gap 9 (3-11) BUN 18 (6-23) mg/dl Creatinine 0.58 L (0.6-1.2) mg/dl Est Cr Clr Drug Dosing 81.2 ml/min Est GFR ( Amer) 103.8 ml/min Est GFR (Non-Af Amer) 89.5 ml/min BUN/Creatinine Ratio 31.0 H (10-20) Glucose 112 H (70-99(Fasting)) mg/dl Calcium 8.3 L (8.6-10.3) mg/dl Magnesium 1.8 (1.7-2.4) mg/dl
[2024-01-10] MEDS: MULTIVITAMIN TAB PO SCH (08:34)
[2024-01-10] MEDS: allopurinoL 100 MG TAB PO SCH (08:34)
--- NOTE | 2024-01-10 08:34 | Hospitalist Progress Note ---
Date of Service January 10, 2024 Assessment & Plan (1) Primary osteoarthritis of right knee: Plan: s/p Right Total Knee Arthroplasty(Right), brisa and Acticoat superficial wound VAC application- Nash Mai MD on 01/08 EBL 5cc Pain control, bowel regimen, antiemetics per primary service WBC elevation suspected 2nd to steroids/stress from surgery. Afebrile Hgb 12.5--> 10.5, acute blood loss anemia from surgery as well as dilutional from IVF post-operatively (hemovac output 400cc + 190cc already this morning) --notable she did have decent hemovac output in 2022 with her left knee) DVT proph: ASA 81mg BID ordered by primary service. Continue SCDs, teds PT/OT consults pending Placed AM chlorthalidone and lisinopril on hold given borderline BP until working with therapy as did with prior admission w/ L knee with good success. No lightheaded/dizziness at present time but borderline BP and will hold for now. BUN/Cr stable 18./0.58 Give prior course w/ her other knee, appears likely benefit from monitoring hemovac output/repeat labs Please call with any questions/concerns, will follow up in AM (2) CKD (chronic kidney disease) stage 2, GFR 60-89 ml/min: Plan: BUN/Cr stable on repeat labs Home lisinopril/chlorthialidone placed on hold as above given borderline BP while awaiting working with therapy but likely able to resume tomorrow in light of acute blood loss anemia (3) Hypertension: Plan: BP stable/borderline 109/68 this morning Home lisinopril/chlorthalidone placed on hold as outlined and will monitor hemovac output/BPs and labs in AM and consider resuming if stable Peripheral vascular disease by history appears stable on exam. ASA BID per ortho as above for DVT prophylaxis (4) Hyperlipidemia: Plan: Chronic, stable Continue home crestor (5) Acid reflux: Plan: Does not appear to be on any medications at baseline No reflux symptoms reported at present but can add pepcid prn if needed given NSAID use (6) Lymphoma: Plan: Hx MALT lymphoma, in remission. Also has hx parotid ca 2019, s/p treatment Plan continued inpatient stay monitoring hemovac output/labs in AM PT/OT consults pending Thank you for allowing hospitalist service to participate in the care of Ms Easley. Will follow along in AM. Please call with any questions/concerns. Admission and Anticipated Discharge Date Admission Date: January 09, 2024 Supervising Physician Co-Signing Physician Notes The patient was not seen by me. The chart was reviewed. Case discussed with RORO Kat. Agree with assessment and plan Subjective Evaluated this morning, sitting up in bed brushing her teeth. Just getting done working with therapy. Pain about 4/10. Remembers me from her prior knee surgery in July. Similar course with her hemovac output and holding her AM BP meds.She denies any lightheaded/dizziness or CP/SOB and discussed will monitor drain output/BP and likely able to resume tomorrow pending. Will have hemovac remain in place until output decreased. She notes she is still on daily iron supplementation and hasn't had issues with moving her bowels but is on pain medications now and will continue bowel regimen/monitor. No fever/chills reported. Questions/concerns addressed at this time. Physical Exam Physical Exam: General: WN/WD female sitting up in chair, NAD, looking good, brushing her teeth/working with therapy HEENT: head normocephalic, atraumatic, mmm, trachea midline Resp: CTA, no w/c/r, on room air CV: RRR, no significant mrg, trace pedal edema, calves nontender, pulses palpable GI: +BS, soft/NT MSK/Neuro: dressing to RIGHT knee c/d/i, hemovac bloody output, NVI, toes mobile/compartments soft, strength equal bilaterally prior LEFT knee incision well healed Psych: AOx3, cooperative Results & Data Results & Data Vital Signs (Past 12 Hours) Vital Signs Temp Pulse Resp BP Pulse Ox O2 Del Method 01/10/24 07:09 36.4 C L 80 20 104/67 98 Room Air 01/10/24 05:40 36.6 C 98 H 18 113/74 97 Room Air 01/10/24 02:04 36.7 C 103 H 14 100/58 L 97 Room Air 01/09/24 22:01 36.7 C 88 14 104/64 97 Room Air Laboratory Results 01/10/24 Range/Units 05:44 WBC 11.07 H (4.8-10.8) K/ul RBC 3.72 L (4.20-5.40) M/uL Hgb 10.5 L (12.0-16.0) g/dl Hct 31.8 L (37.0-47.0) % MCV 85.5 (80.0-100.0) fL MCH 28.2 (25.0-34.0) pg MCHC 33.0 (32.0-36.0) g/dL RDW Std Deviation 51.9 H (36.4-46.3) fL RDW Coeff of Tico 16.6 H (11.5-14.5) % Plt Count 207 (130-400) K/uL MPV 10.1 (9.4-12.4) fL Sodium 139 (136-145) mmol/L Potassium 4.0 (3.5-5.1) mmol/L Chloride 107 (98-107) mmol/L Carbon Dioxide 23 (21-32) mmol/L Anion Gap 9 (3-11) BUN 18 (6-23) mg/dl Creatinine 0.58 L (0.6-1.2) mg/dl Est Cr Clr Drug Dosing 81.2 ml/min Est GFR ( Amer) 103.8 ml/min Est GFR (Non-Af Amer) 89.5 ml/min BUN/Creatinine Ratio 31.0 H (10-20) Glucose 112 H (70-99(Fasting)) mg/dl Calcium 8.3 L (8.6-10.3) mg/dl Magnesium 1.8 (1.7-2.4) mg/dl PG Care Time/CCT Total # of Minutes Spent Total Time Spent with Patient: Total time spent is greater than 50% in coordination of care (as documented) at patient's floor/unit and/or counseling patient: Coding Level of Care Code 18647 SUB INP/OBS CARE 3/50MIN Diagnoses Primary osteoarthritis of right knee M17.11 CKD (chronic kidney disease) stage 2, GFR 60-89 ml/min N18.2 Hypertension I10 Hyperlipidemia E78.5 Acid reflux K21.9 Lymphoma C85.90
[2024-01-10] MEDS: FERROUS SULFATE 325 MG TAB PO SCH (08:35)
[2024-01-10] MEDS ORDERED: CHLORTHALIDONE 25 MG TAB PO SCH (09:00)
[2024-01-10] MEDS ORDERED: lisinopril 20 MG TAB PO SCH (09:00)
[2024-01-10] MEDS ORDERED: FAMOTIDINE 20 MG TAB PO PRN (12:30)
[2024-01-10] MEDS: oxyCODONE HCL IR 5 MG TAB (IMMEDIATE RELEASE) PO PRN (20:30)
[2024-01-11 07:39] LABS: Hematocrit (blood only) 27.1 % (37.0-47.0); Hemoglobin 8.8 g/dl (12.0-16.0); Mean Corpuscular Hgb Conc 32.5 g/dL (32.0-36.0); Mean Corpuscular Volume 86.3 fL (80.0-100.0); Mean Platelet Volume 10.1 fL (9.4-12.4); Platelet Count 175 K/uL (130-400); RDW Coefficient of Variation 17.1 % (11.5-14.5); RDW Standard Deviation 52.6 fL (36.4-46.3); Red Blood Count 3.14 M/uL (4.20-5.40); White Blood Count 5.25 K/ul (4.8-10.8)
--- NOTE | 2024-01-11 07:42 | Orthopedic Progress Note ---
Date of Service January 11, 2024 Assessment & Plan (1) Primary osteoarthritis of right knee: Plan: Postop day #2 right total knee arthroplasty -PT/OT -Pain management as written -DVT prophylaxis: SCDs, teds, aspirin 81 mg twice daily -A.m. labs: 01/09 Hemoglobin 8.8 this morning from 10 yesterday. Acute blood loss anemia due to surgical loss versus dilutional. Mild leukocytosis likely reactive due to surgical stress versus perioperative steroids, resolved. Patient is asymptomatic. -Discharge planning: Plan on discharge home with outpatient therapy today. Admission and Anticipated Discharge Date Admission Date: January 09, 2024 Subjective Postop day 2 right total knee. Patient is feeling well overall. Pain is controlled. No other complaints. Denies chest pain, shortness of breath, nausea/vomiting/diarrhea, headaches or dizziness. Review of Systems Review of Systems: All systems reviewed & are unremarkable except as noted in Subjective Physical Exam Physical Exam: Right knee: Dressing is clean, dry, intact. Hemovac on suction. Toes are mobile with good dorsiflexion. No calf tenderness. Able to straight leg raise. Distal neurovascular status and sensation is grossly intact Results & Data Vital Signs (Past 12 Hours) Vital Signs Temp Pulse Resp BP Pulse Ox O2 Del Method 01/10/24 20:32 36.6 C 101 H 14 108/67 97 Room Air
--- NOTE | 2024-01-11 07:51 | Discharge Summary ---
Date of Service January 11, 2024 Admission HPI Per Admitting Provider 78yo female with PMHx significant for CKD, HTN, lymphoma, PVD who presents with ongoing right knee pain. Pain is interfering with her daily activity. She has failed conservative measures and would like to proceed with surgical intervention. Patient denies headaches, sweats, fevers, chills, double vision, blurred vision, cough, sore throat, dysphagia, chest pain, sob, wheezing, n/v/d/c, numbness, tingling, fatigue, urinary symptoms, mood disorders. ROS positive for right knee pain and stiffness. Admission Exam Per Admitting Provider Constitutional: well developed and well nourished; no acute distress Eyes: PERRL, conjunctivae normal, anicteric sclerae ENMT: external ear and nose normal, oropharynx normal Neck: trachea midline, no thyromegaly Respiratory: normal respiratory effort, lungs clear to auscultation Cardiovascular: RRR, no murmur, no edema Musculoskeletal: Right knee: Varus alignment. Mild effusion. Tenderness medial joint line. Moderate crepitation with range of motion. Positive Savage's. Stable valgus and varus stress test. Range of motion -10 to 70 degrees. Skin: no rashes, warm and dry Neurologic: patellar DTR's 2+ bilat, sensation intact Psychiatric: A+Ox3, euthymic affect Principal Diagnosis Right knee osteoarthritis Discharge Exam Right knee: Dressing is clean, dry, intact. Hemovac on suction. Toes are mobile with good dorsiflexion. No calf tenderness. Able to straight leg raise. Distal neurovascular status and sensation is grossly intact Discharge Data Allergies Allergy/AdvReac Type Severity Reaction Status Date / Time No Known Allergies Allergy Verified 01/09/24 05:33 Consultations 01/04/24 11:08 Consult Hospitalist Routine Procedures Performed Operation Date: 01/09/24 07:00 Actual Procedures p Right Total Knee Arthroplasty(Right) - Nash Mai MD Ordered Studies 01/09/24 05:00 US - OR guided needle placemen Routine Hospital Course (1) Primary osteoarthritis of right knee: Postop day #2 right total knee arthroplasty -PT/OT -Pain management as written -DVT prophylaxis: SCDs, teds, aspirin 81 mg twice daily -A.m. labs: 01/09 Hemoglobin 8.8 this morning from 10 yesterday. Acute blood loss anemia due to surgical loss versus dilutional. Mild leukocytosis likely reactive due to surgical stress versus perioperative steroids, resolved. Patient is asymptomatic. -Discharge planning: Plan on discharge home with outpatient therapy today. Postop day #1 right total knee arthroplasty -PT/OT -Pain management as written -DVT prophylaxis: SCDs, teds, aspirin 81 mg twice daily -A.m. labs: Hemoglobin 10.5 from 12.5 preop. Acute blood loss anemia due to surgical loss versus dilutional. Mild leukocytosis likely reactive due to surgical stress versus perioperative steroids. Patient is asymptomatic. -Discharge planning: Plan on discharge home with outpatient therapy when stable. Patient's Hemovac output was 400 cc over the last shift. Continue Hemovac. Plan on likely discharge home tomorrow. Lab Results 01/10/24 01/11/24 Range/Units 05:44 06:49 WBC 11.07 H 5.25 (4.8-10.8) K/ul RBC 3.72 L 3.14 L (4.20-5.40) M/uL Hgb 10.5 L 8.8 L (12.0-16.0) g/dl Hct 31.8 L 27.1 L (37.0-47.0) % MCV 85.5 86.3 (80.0-100.0) fL MCH 28.2 28.0 (25.0-34.0) pg MCHC 33.0 32.5 (32.0-36.0) g/dL RDW Std Deviation 51.9 H 52.6 H (36.4-46.3) fL RDW Coeff of Tico 16.6 H 17.1 H (11.5-14.5) % Plt Count 207 175 (130-400) K/uL MPV 10.1 10.1 (9.4-12.4) fL Sodium 139 (136-145) mmol/L Potassium 4.0 (3.5-5.1) mmol/L Chloride 107 (98-107) mmol/L Carbon Dioxide 23 (21-32) mmol/L Anion Gap 9 (3-11) BUN 18 (6-23) mg/dl Creatinine 0.58 L (0.6-1.2) mg/dl Est Cr Clr Drug Dosing 81.2 ml/min Est GFR ( Amer) 103.8 ml/min Est GFR (Non-Af Amer) 89.5 ml/min BUN/Creatinine Ratio 31.0 H (10-20) Glucose 112 H (70-99(Fasting)) mg/dl Calcium 8.3 L (8.6-10.3) mg/dl Magnesium 1.8 (1.7-2.4) mg/dl Total Time Total Time Spent Total Time Spent (In Minutes): 20 Discharge Plan Discharge Items Patient Disposition: Home - Self-Care Reason For Visit: Right Knee Osteoarthritis Discharge Diagnosis: Right knee osteoarthritis Activity: Per Instructions section Non-emergency contact: Surgeon Call non-emergency contact if: you have any medication questions, your pain is concerning for you, you have a fever, your temperature is above 101, your wound has increased redness and your wound has increased drainage Follow-up/Referrals: Holger Grewal MD [Primary Care Provider] - Diet: Regular Addtl Attending Provider Instructions: ACTIVITY RECOMMENDATIONS: SELF CARE INSTRUCTIONS AFTER TOTAL KNEE REPLACEMENT A. You may need to continue a physical therapy program after discharge from the hospital. There are several options available to you. Your doctor will assist you in selecting the best one for you. 1. An out-patient facility 2 to 3 times a week for therapy or home therapy. 2. Continue working on all exercises taught to you in the hospital. Your goals should be to increase bending of your knee to 90 degrees and beyond and to fully straighten your knee. B. You may progress at your own pace from walking with a walker or crutches to a cane; then to no assistive devices. C. Make walking a part of your daily routine. Be up as much as comfortable with rest periods throughout the day. Rest with leg elevation is very important. Use the ice wrap frequently for the first 3-4 weeks. D. There are no restrictions on activities. You may ride in a car, shop, participate in radiology assistant and all social activities. E. Wear the long elastic stockings (BELA hose) 20 hours a day for 2 weeks after surgery. They can be removed several times a day for laundering and for a bath. F. You may shower, no tub baths until cleared by your doctor. SPECIAL CARE INSTRUCTIONS: VERY IMPORTANT TO READ AND REVIEW A. There are a few signs you need to watch for after you are home. Call [facility] if you notice any of the followin. Increased severe knee pain. Some pain is expected especially when you exercise. 2. Increased swelling in your leg or knee; pain or swelling of the calf muscle in either lower leg. 3. Any fluid drainage from the incision. 4. Shortness of breath or chest pain. B. Please call [facility] at if you have any concerns or questions about your operation or recovery. The doctor or his nurse will return your call promptly. C. You must take antibiotics before dental work, bladder, bowel or other surgery. Your doctor will provide you with a permanent care to carry describing this precaution. IMPORTANT: * REMEMBER TO TAKE ASPIRIN, 81 MG, TWICE DAILY FOR 4 WEEKS UNLESS OTHERWISE DIRECTED. THIS IS YOUR BLOOD THINNER. * HIGH RISK PATIENTS MAY BE PRESCRIBED A STRONGER BLOOD THINNER. THIS WILL BE PROVIDED AT DISCHARGE. * CALL IF INCREASED PAIN, REDNESS, DRAINAGE OR FEVER GREATER THAT 101. * WEAR BELA HOSE 20 HOURS PER DAY FOR 2 WEEKS. There is a large suction dressing covering your incision. This will help pull any excess drainage from the wound and allow your incision to heal properly. You may shower with this if you can keep the unit outside of the shower. If any bleeding or leakage is noted please call your doctor's office. This will remain on your incision for 7 days and then should be removed. This can be done yourself or by the home nursing staff if applicable. The entire unit is disposable once removed. Once removed, keep incision clean and dry. If redness or drainage is noted, please call your surgeon. IF INCISION IS LEAKING THROUGH DRESSING, CALL THE OFFICE . FOLLOW UP VISIT: If appointment is not already scheduled: Please call [facility] to make a follow-up appointment for 2 weeks after your surgery at . Stand-Alone Forms: My [employer], Smoking Cessation Medications and DC Order Prescriptions: New celecoxib [Celebrex] 200 mg Capsule 200 mg PO BID Qty: 60 0RF aspirin 81 mg Tablet,Delayed Release (Dr/Ec) 81 mg PO BID Qty: 60 0RF acetaminophen [Tylenol Extra Strength] 500 mg Tablet 1,000 mg PO Q8 Qty: 60 0RF oxycodone 5 mg Tablet 5 - 10 mg PO .Q4h-6h MDD 6 PRN (Reason: pain) Qty: 30 0RF Rx Instructions: Ongoing therapy, Dr. Mai supervising Continued lisinopril 20 mg Tablet 20 mg PO BID chlorthalidone 25 mg Tablet 25 mg PO QAM rosuvastatin [Crestor] 10 mg Tablet 10 mg PO HS allopurinol 100 mg Tablet 100 mg PO QAM polyethylene glycol 3350 [Miralax] 17 gram powder in packet 17 g PO DAILY PRN (Reason: constipation) Qty: 5 0RF ferrous sulfate 325 mg (65 mg iron) Tablet,Delayed Release (Dr/Ec) 325 mg PO QAM Qty: 30 1RF Discontinued aspirin 81 mg Tablet,Delayed Release (Dr/Ec) 81 mg PO BID Qty: 60 0RF acetaminophen [Tylenol Extra Strength] 500 mg Tablet 1,000 mg PO Q8 Qty: 60 0RF oxycodone 5 mg tablet 5 mg PO Q4H MDD 6 PRN (Reason: pain) Qty: 30 0RF celecoxib [Celebrex] 200 mg capsule 200 mg PO BID Discharge Orders: Discharge Order (Routine); Ordered 01/11/24 Ordered By: Kieran Crowder Admission Data Admit Date/Time: 01/09/24 10:28 Attending Provider: Nash Mai Admit Provider: Nash Mai Primary Care Provider: Holger Grewal Other Providers: Phill Marie
[2024-01-11 08:02] LABS: BUN Creatinine Ratio 36.7 (10-20); Calcium 7.8 mg/dl (8.6-10.3); Creatinine Clr Calc Pharmacy 78.5 ml/min; Est GFR (African American) 102.6 ml/min; Est GFR (Non-African American) 88.5 ml/min; Magnesium 1.8 mg/dl (1.7-2.4); Potassium 4.1 mmol/L (3.5-5.1)
--- NOTE | 2024-01-11 08:23 | Hospitalist Progress Note ---
Date of Service January 11, 2024 Assessment & Plan (1) Primary osteoarthritis of right knee: Plan: s/p Right Total Knee Arthroplasty(Right), brisa and Acticoat superficial wound VAC application- Nash Mai MD on 01/08 EBL 5cc Pain control, bowel regimen, antiemetics per primary service WBC elevation suspected 2nd to steroids/stress from surgery. Afebrile Hgb 12.5--> 10.5, acute blood loss anemia from surgery as well as dilutional from IVF post-operatively (hemovac output 400cc + 190cc already this morning) --notable she did have decent hemovac output in 2022 with her left knee) DVT proph: ASA 81mg BID ordered by primary service. Continue SCDs, teds 01/10 POD#2, doing well WBC wnl, afebrile Hgb dropped to 8.8 Hemovac output slowed and planning for removal today per primary service. No lightheaded/dizziness and BP stable but 118/70 and similar to last admission discussed holding off lisinopril and resume tomorrow at home w/ monitoring of her BP. No CP/SOB, renal function stable. Waiting to work with therapy today prior to discharge. If develops any lightheaded/dizziness would repeat CBC but has been asymptomatic at this time. Bowel movement overnight. PO Iron continued. Encourage bowel regimen Planning for removal of hemovac per orthopedics and discharge today with outpatient PT through [facility]. Hospitalist service to sign off. Please call with any questions/concerns. (2) CKD (chronic kidney disease) stage 2, GFR 60-89 ml/min: Plan: BUN/Cr stable on repeat labs Home lisinopril to resume tomorrow w/ BP monitoring. No increased LE edema or n eed for chlorthalidone (3) Hypertension: Plan: BP stable/borderline but improved 118/70 ASYMPTOMATIC Only takes chlorthalidone for edema, no need at present. Home lisinopril to resume as outlined above Peripheral vascular disease by history appears stable on exam. ASA BID per ortho as above for DVT prophylaxis (4) Hyperlipidemia: Plan: Chronic, stable Continue home crestor (5) Acid reflux: Plan: Does not appear to be on any medications at baseline No reflux symptoms reported at present but can add pepcid prn if needed given NSAID use (6) Lymphoma: Plan: Hx MALT lymphoma, in remission. Also has hx parotid ca 2019, s/p treatment Plan Thank you for allowing hospitalist service to participate in the care of Ms Easley. Hospitalist service will sign off at this time. Please call with any questions/concerns. Admission and Anticipated Discharge Date Admission Date: January 09, 2024 Supervising Physician Co-Signing Physician Notes The patient was not seen by me. The chart was reviewed. Case discussed with RORO Kat. Agree with assessment and plan Subjective Evaluated this morning, doing well. Pain improving/controlled with ordered medications. Moved her bowels overnight. No fever/chills, chest pain, shortness of breath, lightheaded/dizziness. Discussed resuming lisinopril tomorrow and checking her BP prior to administration and holding off if having low BPs but similar to last time she resumed them the day following. Chlorthalidone reserved for when she has increased edema and she is to monitor. Planning for dc today w/ outpatient physical therapy. Physical Exam Physical Exam: General: WN/WD female sitting up in bed, NAD, appears well HEENT: head normocephalic, atraumatic, mmm, trachea midline Resp: CTA, no w/c/r, on room air CV: RRR, no significant mrg, trace pedal edema, calves nontender, pulses palpable GI: +BS, soft/NT MSK/Neuro: dressing to RIGHT knee c/d/i, hemovac bloody output, NVI, drain intact/green light on toes mobile/compartments soft, strength equal bilaterally prior LEFT knee incision well healed Psych: AOx3, cooperative Results & Data Results & Data Vital Signs (Past 12 Hours) Vital Signs Temp Pulse Pulse Resp BP Pulse Ox O2 Del Method 01/11/24 07:50 36.6 C 83 15 118/70 98 Room Air 01/10/24 20:32 36.6 C 101 H 14 108/67 97 Room Air Laboratory Results 01/11/24 Range/Units 06:49 WBC 5.25 (4.8-10.8) K/ul RBC 3.14 L (4.20-5.40) M/uL Hgb 8.8 L (12.0-16.0) g/dl Hct 27.1 L (37.0-47.0) % MCV 86.3 (80.0-100.0) fL MCH 28.0 (25.0-34.0) pg MCHC 32.5 (32.0-36.0) g/dL RDW Std Deviation 52.6 H (36.4-46.3) fL RDW Coeff of [place]ico 17.1 H (11.5-14.5) % Plt Count 175 (130-400) K/uL MPV 10.1 (9.4-12.4) fL Sodium 138 (136-145) mmol/L Potassium 4.1 (3.5-5.1) mmol/L Chloride 107 (98-107) mmol/L Carbon Dioxide 26 (21-32) mmol/L Anion Gap 5 (3-11) BUN 22 (6-23) mg/dl Creatinine 0.60 (0.6-1.2) mg/dl Est Cr Clr Drug Dosing 78.5 ml/min Est GFR ( Amer) 102.6 ml/min Est GFR (Non-Af Amer) 88.5 ml/min BUN/Creatinine Ratio 36.7 H (10-20) Glucose 92 (70-99(Fasting)) mg/dl Calcium 7.8 L (8.6-10.3) mg/dl Magnesium 1.8 (1.7-2.4) mg/dl PG Care Time/CCT Total # of Minutes Spent Total Time Spent with Patient: Total time spent is greater than 50% in coordination of care (as documented) at patient's floor/unit and/or counseling patient: Coding Level of Care Code 83501 SUB INP/OBS CARE 2/35MIN Diagnoses Primary osteoarthritis of right knee M17.11 CKD (chronic kidney disease) stage 2, GFR 60-89 ml/min N18.2 Hypertension I10 Hyperlipidemia E78.5 Acid reflux K21.9 Lymphoma C85.90
== END 2024-01-11 11:41 | disposition home or self-care (01) ==
LOC: 3N 05:11 → ASU 05:11